=== PATIENT | male | born 1980 | race Caucasian/White ===

== ENCOUNTER 2019-08-13 18:01 | Emergency (ER) | payer OTHER, SELFPAY ==
[2019-08-13 18:02] VITALS: BP 149/93; PULSE 87; RESP 17; TEMP 36.3; O2SAT 95; BMI 31.8
--- NOTE | 2019-08-13 18:16 | ED.DCSUM_ITS ---
History of Present Illness Chief Complaint: Lower Extremity Injury Informant: Patient Narrative: Patient states that on Friday he developed pain in the medial aspect of his right calf. It hurts worse when he pulls his dorsiflexes. He denies any swelling to the leg or any known trauma. Denies any swelling behind the knee. No rashes or fevers. His father had blood clots. He personally has never had any. He tried drinking some extra water and a banana but that has not helped. He states it feels more like a charley horse. Past Medical History - Allergies and Home Meds Allergies/Adverse Reactions: Allergies Penicillins Allergy (Verified 08/13/19 18:02) Unknown Had it once when he was an infant and had a reaction at that time. Primary Care Physician: Russ Rai MD [Primary Care Provider] - Surgical History: - - 2 umbilical hernia surgeries vasectemy Smoking Status: Never smoker - Family History Paternal Family History: Reports: Hypertension Maternal Family History: Reports: Unknown Review of Systems General: Denies: Chills, Fever, Sweats Eyes: Denies: Visual changes - bilaterally, Diplopia ENT: Denies: Rhinorrhea, Sore throat Cardiovascular: Denies: Chest pain, Palpitations Respiratory: Denies: Dyspnea, Cough, Dyspnea on exertion Gastrointestinal: Denies: Abdominal pain, Nausea, Vomiting, Diarrhea, Melena, Hematochezia Genitourinary: Denies: Dysuria, Hematuria, Frequency Musculoskeletal: Reports: Extremity Pain. Denies: Back pain, Swelling Skin: Denies: Rash, Wounds Neurological: Denies: Headache, Weakness, Numbness Physical Exam Vital Signs/Narrative: Vital Signs Temp Pulse Resp BP Pulse Ox 08/13/19 18:02 97.4 F L 87 17 149/93 H 95 Inital Vital Signs reviewed: Yes General: Well nourished, Well developed, No Acute Distress Head: Normocephalic, Atraumatic Eyes: Perrl, EOMI ENT: Moist mucous membranes, No rhinorrhea Neck: Supple, Nontender Cardiovascular: Regular rate, Regular rhythm, No murmurs Respiratory: No distress, CTA bilaterally, Chest nontender Abdomen: Soft, Nontender, Nondistended, Normal bowel sounds Back: Nontender, Normal Inspection Extremities: No edema, - - There is some mild tenderness to palpation of the medial aspect of the right calf. There is no swelling of the leg no palpable c ords. No ecchymosis. No fullness in the popliteal space. No rashes. Pain with dorsiflexion negative Houston's. Skin: Normal color, No rash Neurological: Alert, Oriented x3, Cranial nerves II-XII grossly intact, Normal Strength, Normal Sensation Psychological: Normal affect, Normal Mood Diagnostic/Tx/Re-eval Clinical Impression(s) from Imaging Studies Venous Duplex 08/13/19 18:19 IMPRESSION: Normal venous Doppler ultrasound of the right lower extremity. Electronically Signed: Carlos Jason, at 19:46 EDT Tel , Service support , - Medical Decision Making Ultrasound was negative for DVT. I do not feel any firmness in the muscle belly to suggest spasm or mass. I do not appreciate a Garza's cyst. Patient will continue to rest the leg if is not improving he will follow-up with his doctor. ED Disposition - Plan for ED Patient: Disposition: Home or Assisted Living Diagnosis: Right calf pain Instructions: ED Strain Muscle Ext Referrals: Russ Rai MD [Primary Care Provider] - 1 Week if not improving
--- NOTE | 2019-08-13 18:19 | US_ITS ---
STUDY: VENOUS DOPPLER ULTRASOUND - RIGHT LOWER EXTREMITY REASON FOR EXAM: Male, 38 years old. RT CALF PAIN FOR 2 DAYS TECHNIQUE: Ultrasound evaluation of the deep vein system to include beaulieu-scale imaging and compression was performed. Beaulieu-scale imaging and Doppler sonographic evaluation, including duplex spectral analysis and qualitative color flow sonography, was performed. COMPARISON: None. FINDINGS: Common Femoral Vein: Normal compression, spontaneity and augmentation. Normal color Doppler. Common Femoral Vein/Greater Saphenous Junction: Normal compression, spontaneity and augmentation. Normal color Doppler. Femoral Proximal: Normal compression, spontaneity and augmentation. Normal color Doppler. Femoral Middle: Normal compression, spontaneity and augmentation. Normal color Doppler. Femoral Distal: Normal compression, spontaneity and augmentation. Normal color Doppler. Popliteal Vein: Normal compression, spontaneity and augmentation. Normal color Doppler. Posterior Tibial Vein: Normal compression, spontaneity and augmentation. Normal color Doppler. Peroneal Vein: Normal compression, spontaneity and augmentation. Normal color Doppler. US/Venous Duplex Imag/Limited/Uni IMPRESSION: Normal venous Doppler ultrasound of the right lower extremity. Electronically Signed: Carlos Gomez, at 19:46 EDT Tel , Service support ,
== END 2019-08-13 20:03 | disposition home or self-care (01) ==
PROVIDERS: Emergency Provider Emergency Medicine; PCP Family Medicine
DX: M79.661 Pain in right lower leg (principal); Z88.0 Allergy status to penicillin
CPT/HCPCS: 93971; 99282

== ENCOUNTER → 2020-02-02 | Outpatient (CLI) | payer OTHER, SELFPAY | END | disposition home or self-care (01) | LOC: LABSPEC 10:12 | PROVIDERS: PCP Family Medicine; Referring Provider Physician Assistant; Visit Provider Physician Assistant | DX: Z11.59 Encounter for screening for other viral diseases (principal) | CPT/HCPCS: 87635; C9803; U0003 ==

== ENCOUNTER 2020-05-17 07:30 | Outpatient (RCR) | payer OTHER, SELFPAY ==
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
--- NOTE | 2020-03-20 11:21 | HP.PTREVAL ---
Lexa Mirza PA-C, It has been my pleasure to treat RINKU BREEN over the last 9 visits for Subacromial decompression, Biceps Tenodesis, Clav Resection. Please see the progress note below for an update on the physical therapy plan of care! Subjective: Patient reports that he is almost 6 weeks out from surgery and is really ready to take the sling off. Plans to ask MD today if he can take if off. Go back to MD on the 29 of March. Sleep still bothersome when he rolls over on the right side. Does not sleep in the sling. Worst: 8-9 when he wakes up on it 4/10 when during the day. Agg: jerking like coughing and sneezing. Most of the day he is painfree. Does have mild N/T in the fingers if he is sitting for to long- when he moves the arm the N/T goes away. Goals: get back to playing golf. Objective/Function: Posture: FH, RS- does wear pillow sling on the right UE. Gait: no deviation noted in LE but no arm swing or trunk rotation due to sling. Observation: no s/s of infection- incisions healing well Palpation: tender along upper trap, distal clav., medial border of the scapula. ROM: Wrist/Hand: WNL AROM, PROM: Elbow: WNL AROM Shoulder: Flexion: 128 degrees, Abd: 95 degrees, IR: to belly, ER: 20 degrees. Strength: not tested due to restrictionsin shoulder/elbow. Plan Plan: Follow Biceps Tenodesis protocol- no elbow flexion/extn actively for 8 weeks. 03/20/2020: Progress shoulder ROM. Goals Goal 1:: Patient will be I with HEP and progression Goal Time Frame: 4-6 Weeks Goal Progress: Progressing Goal 2:: Patient will demo full AROM of the right shoulder Goal Time Frame: 4-6 Weeks Goal Progress: Progressing Goal 3:: Patient will maintain proper posture t/o tx session to demo increased scap s/s. Goal Time Frame: 4-6 Weeks Goal Progress: Progressing Anticipated Interventions Patient/Client Instruction: Educate patient on: Benefits of Fitness Program Therapeutic Exercise to Include: Strength training, Endurance training, Agility training, Body mechanics, Postural training, Flexibilty training, Neuromotor development, Passive ROM, Active ROM, Dynamic Lumbar Stabilization, Kristy Exercises For the Purpose of:: To improve muscle performance and motor function TENS: Yes Cryotherapy (ice pack, ice massage): Yes Thermo therapy (hot pack): Yes Ultrasound (thermal/non thermal): Yes Please do not hesitate to contact me at [phone] by phone or if you have questions or concerns regarding this new plan of care! Sincerely, SANGEETA PisanoT
--- NOTE | 2020-04-19 07:27 | HP.PTREVAL ---
Lexa Mirza PA-C, It has been my pleasure to treat RINKU BREEN over the last 17 visits for Subacromial decompression, Biceps Tenodesis, Clav Resection. Please see the progress note below for an update on the physical therapy plan of care! Subjective: He reports that he is better than he was before. He is able to use the shoulder but its not exactly like the other one. He is able to raise overhead and tie his own shoes. Has still struggles to tuck his shirt in or roll over on his right side. Worst: 4/10 Best: 0/10 most of the time. Patient feels that he is 60%- he wants to throw a baseball or swing a golf club. Goes back to see MD in the next two weeks. Objective/Function: Posture: FH, RS- can correct and maintain given VC's. Patient does not guard UE. Gait: good arm swing and trunk rotation. Palpation: tender in bicipital groove, upper trap and into the infraspinatus. Rom: Cervical: WNL. Shoulder: Flexion/Abduction: WFL but is slow and reports pain at end range. IR: to pocket with pain, ER: 50 degrees, Elbow/Wrist/Hand: WFL. Strength: Scap: fair, Shoulder: flexion/abd at 90 degrees arm extended: 4-/5, IR/ER at 90/90: 4+/5, Elbow: Flexion: 4+/5 Extn: 4+/5, Wrist: WNL Plan Plan: Follow Biceps Tenodesis protocol- no elbow flexion/extn actively for 8 weeks. 03/20/2020: Progress shoulder ROM. 04/19/2020: Strength/Stablization and good home exericise program. IE Given: IR sleeper Stretch and IR towel stretch Goals Goal 1:: Patient will be I with HEP and progression Goal Time Frame: 4-6 Weeks Goal Progress: Progressing Goal 2:: Patient will demo full AROM of the right shoulder Goal Time Frame: 4-6 Weeks Goal Progress: Progressing Goal 3:: Patient will maintain proper posture t/o tx session to demo increased scap s/s. Goal Time Frame: 4-6 Weeks Goal Progress: Progressing Anticipated Interventions Patient/Client Instruction: Educate patient on: Benefits of Fitness Program Therapeutic Exercise to Include: Strength training, Endurance training, Agility training, Body mechanics, Postural training, Flexibilty training, Neuromotor development, Passive ROM, Active ROM, Dynamic Lumbar Stabilization, Kristy Exercises For the Purpose of:: To improve muscle performance and motor function TENS: Yes Cryotherapy (ice pack, ice massage): Yes Thermo therapy (hot pack): Yes Ultrasound (thermal/non thermal): Yes Please do not hesitate to contact me at [phone] by phone or if you have questions or concerns regarding this new plan of care! Sincerely, SANGEETA PisanoT
--- NOTE | 2020-05-17 09:05 | HP.PTDCSUM ---
It has been my pleasure to treat RINKU BREEN referred by Lexa Mirza PA-C, with the diagnosis of Subacromial decompression, Biceps Tenodesis, Clav Resection for a total of 25 visit(s). Discharge Date: Please see the following information for a summary of their discharge status. Subjective: Pt reports only certain movements it hurts more such as scapation feels it on biceps insertion. Pt reports that he feels it more bad weather. Pt reports that he is lacking strength for lifting, cannot throw ball. Pt reports some discomfort remaintain in biceps insertion. R SH Pain Intensity (Out of 10): 0 % Improvement: 90 Objective/Function: Posture: FH, RS- can correct and maintain given VC's. Patient does not guard UE. Gait: good arm swing and trunk rotation. Palpation: tender in bicipital groove. ROM: Shoulder: Flexion/Abduction: WFL but is slow and reports pain at end range. IR: to belt line without pain, ER: 50 degrees, Elbow/Wrist/Hand: WFL. Strength: Scap: fair, Shoulder: flexion/abd at 90 degrees arm extended: 4/5, IR/ER at 90/90: 4+/5 pain with IR , Elbow: Flexion: 5/5 Extn: 4+/5, Wrist: WNL. throw tennis ball: short distance (10ft) with tennis ball, to increase ROM and improve confidence. Goal 1:: Patient will be I with HEP and progression Goal Progress: Progressing Goal 2:: Patient will demo full AROM of the right shoulder Goal Progress: Progressing Goal 3:: Patient will maintain proper posture t/o tx session to demo increased scap s/s. Goal Progress: Progressing Plan: Pt to be d/c with I HEP, encouraged to contact with questions and concerns. Pt given paperwork to join health and wellness program. If there are questions or concerns regarding this patient's physical therapy, please feel free to call me at [phone]. Thank you for the referral of this patient. Sincerely, Edith Grier DPT
== END 2020-05-17 13:56 | disposition home or self-care (01) ==
LOC: PT 07:30
PROVIDERS: PCP Family Medicine; Referring Provider Physician Assistant; Visit Provider Physician Assistant
DX: S46.011D Strain of muscle(s) and tendon(s) of the rotator cuff of right shoulder, subsequent encounter (principal); M75.51 Bursitis of right shoulder
CPT/HCPCS: 97110; 97140; 97162; 97164

== ENCOUNTER 2020-10-21 20:56 | Emergency (ER) | payer OTHER, SELFPAY ==
[2020-10-21 20:57] VITALS: BP 127/78; PULSE 114; RESP 16; TEMP 36.8; O2SAT 97; BMI 30.9
--- NOTE | 2020-10-21 21:54 | CT_ITS ---
STUDY: CT ABDOMEN AND PELVIS WITHOUT CONTRAST REASON FOR EXAM: Male, 40 years old. Kidney Stone RADIATION DOSAGE (If Supplied By Facility): CTDIvol = ( 11.92 ) mGy, DLP = ( 690.94 ) mGycm TECHNIQUE: Transaxial images were obtained from the dome of the diaphragm to the symphysis pubis without oral contrast, and without intravenous contrast. Sagittal and coronal images were reconstructed. Individualized dose optimization techniques were used for this CT. COMPARISON: None. FINDINGS: The visualized lung bases are unremarkable. The visualized portions of the heart are within normal limits. Normal liver. Normal gallbladder and extrahepatic biliary system. Normal spleen. Normal pancreas. Normal bilateral adrenal glands. Normal right kidney. Normal left kidney. Normal visualized stomach. Normal small intestine. There is sigmoid diverticulosis, with thickening of the colon wall, and pericolonic inflammation changes consistent with acute diverticulitis. No drainable fluid collection or associated intraperitoneal free gas. The appendix is visualized and appears normal. Normal abdominal aorta. Normal inferior vena cava. Normal retroperitoneum. Normal urinary bladder. Normal visualized prostate gland. Normal abdominal wall. There are diffuse degenerative changes of the visualized lumbar spine. CT/Abdomen/Pelvis without Cont IMPRESSION: Acute uncomplicated sigmoid diverticulitis. Electronically Signed: Ruel Penaloza MD at 22:39 EDT Tel , Service support ,
[2020-10-21 21:59] LABS: Absolute Lymphocyte Count 1.84 X10^3/uL (0.83-4.51); Basophil# 0.02 X10^3/uL; Basophil% 0.2 % (0-1); Eosinophil# 0.01 X10^3/uL; Eosinophils% 0.1 % (0-5); Hematocrit 43.5 % (40-54); Hemoglobin 14.2 g/dL (13.0-16.5); Lymphocyte # 1.84 X10^3/ul (0.83-4.51); Lymphocyte % 14.2 % (19-41); Mean Corp Hgb Conc 32.6 g/dL (32-36); Mean Corpuscular Hgb 28.9 pg (27.0-32.0); Mean Corpuscular Volume 88.4 fL (80-94); Mean Platelet Vol. 9.4 fl (6.2-12.0); Monocyte% 8.5 % (0-10); NRBC Flagged by Analyzer 0 % (0-5); Neutrophil # 9.96 X10^3/uL (2.7-7.7); Neutrophil % 76.5 % (47-70); Platelet Count 219 K/mm3 (150-450); RBC Distribution Width CV 12.3 % (11.6-14.6); RBC Distribution Width SD 40.1 fl (35.1-43.9); Red Blood Count 4.92 M/mm3 (4.6-6.2)
[2020-10-21] MEDS: Ondansetron 4 MG/2 ML Vial IV (22:00)
[2020-10-21] MEDS: Ketorolac 30 MG/ML Syringe IV (22:01)
[2020-10-21] MEDS: 0.9% Normal Saline 1,000 ML 250 ML IV (22:03)
[2020-10-21 22:23] LABS: Anion Gap 6 (5-15); BUN 15 mg/dL (7-18); BUN/Creat Ratio 12.6 RATIO (10-20); Calcium,Total 8.5 mg/dL (8.5-10.1); Chloride 104 mmol/L (98-107); Creatinine, Serum 1.19 mg/dL (0.70-1.30); EST Glomerular Filtration Rate 71 mL/min (>60); Est Glom Filt Rate - Afr Amer 86 mL/min (>60); Estimated Creatinine Clearance 86.13 ml/min; Glucose 106 mg/dL (74-106); Sodium Level 139 mmol/L (136-145)
[2020-10-21 22:47] LABS: Bacteria 0 SEEN /hpf (None Seen); Color, Urine Yellow (Yellow); Glucose, Dipstick Normal (Normal); Ketone-Dipstick Negative (Negative); Leukocyte Esterase-Dipstick Negative /ul (Negative); Mucous, Urine 0 SEEN /hpf (<or=2+); Nitrite-Dipstick Negative (Negative); Occult Blood-Urine 25 /ul (Negative); Protein-Dipstick 15 mg/dl (Negative); Red Blood Cells-Urine 0 SEEN /hpf (0-5); Specific Gravity, Urine 1.015 (1.002-1.030); Squamous Epithelial Cells - UA 0 SEEN /hpf (0-5); Urine Bilirubin Dipstick Negative (Negative); Urine Clarity Clear (Clear); Urine Urobilinogen Normal (Normal); White Blood Cells 0 SEEN /hpf (0-5)
[2020-10-21 23:04] VITALS: BP 130/75; RESP 15; O2SAT 95
--- NOTE | 2020-10-21 23:14 | EDS_ITS ---
HPI History of Present Illness Chief Complaint: Flank Pain Informant: patient Onset/Context/Timing Onset: Yesterday Context: Gradual Onset Timing: Continuous Quality: Cramping, stabbing Location: Low back and lower abdomen Worsened by: Standing, walking Relieved by: Nothing Narrative Narrative: Patient presents with right flank and back pain that began yesterday. Patient states the pain is gradually getting worse. Patient states the pain is radiating into his lower abdomen and right inguinal area. Patient states the pain is worse with standing and walking. Patient describes his pain is cramping and stabbing. Patient states the pain is been constant since yesterday. Patient states his urine has been darker than usual but denies any kwan hematuria. Patient does admit to a mild headache. Patient denies any nausea or vomiting. Patient denies any fevers or chills. PFSH PFS Medical History Alcohol abuse Fatty liver Home Medications multivitamin with minerals 1 ea PO DAILY 08/13/19 [History Last Taken Unknown] ciprofloxacin HCl 500 mg PO BID #20 tablet 10/21/20 [Rx Last Taken Unknown] metronidazole 500 mg PO Q6H #40 tab 10/21/20 [Rx Last Taken Unknown] Allergy/AdvReac Type Severity Reaction Status Date / Time Penicillins Allergy Unknown Verified 10/21/20 20:57 Surgical History Hx of shoulder surgery Social History Smoking Status: Current every day smoker tobacco type: smokeless tobacco ROS ROS ED Constitutional Constitutional ED: Denies chills or fever(s) Eyes Eyes: Denies blurry vision or change in vision ENT ENT ED: Denies rhinorrhea or sore throat Cardiovascular Cardiovascular: Denies chest pain or palpitations Respiratory/Chest Respiratory/Chest: Denies cough or dyspnea Gastrointestinal Gastrointestinal: Denies nausea or vomiting Genitourinary Genitourinary ED: Reports hematuria; Denies dysuria Musculoskeletal Musculoskeletal: Reports back pain; Denies neck pain Integumentary Denies abscess or rash Neurologic Neurologic: Reports headache(s); Denies weakness Allergic/Immunologic Allergic/Immunologic ED: Denies mouth swelling or urticaria EXAM Physical Exam Const Vital Signs: 10/21/20 20:57 10/21/20 21:51 10/21/20 23:04 Temperature 98.2 F Temperature Source Temporal Pulse Rate 114 H Respiratory Rate 16 15 Respiratory Effort Normal Non-Labored Respiratory Pattern Normal Blood Pressure 127/78 H 130/75 H Blood Pressure Mean 94 93 Pulse Ox 97 95 Oxygen Delivery Method Room Air Room Air Positive well nourished and well developed General Appearance ED: well developed HEENT Reports moist mucous membranes Neck supple and no JVD Resp normal respiratory effort and clear to auscultation bilaterally Cardio regular rate, regular rhythm and no murmurs GI normal to inspection, nondistended, normoactive bowel sounds Palpation: soft and tender LLQ, RLQ and suprapubic; Negative for guarding or rebound tenderness present Extremity normal to inspection General Extremety ED: Negative for edema or tenderness General Extremity: Negative for edema Neuro oriented x3, CN's II-XII intact bilaterally and no sensory deficits noted Sensorium / Orientation: alert Motor Exam: strength 5/5 throughout Psych mental status grossly normal Skin no rashes or lesions noted MDM MDM MDM Narrative Medical decision making narrative: Patient was given IV fluids, Toradol, and Zofran. CBC shows a mild leukocytosis of 13.0. Basic metabolic profile was within normal limits. Urinalysis does not show any evidence of urinary tract infection or hematuria. CT scan of the abdomen pelvis was obtained. There is uncomplicated sigmoid diverticulitis. This was interpreted by the radiologist and reviewed by myself. Patient was given a dose of Cipro and Flagyl here. Patient was given prescriptions for Cipro and Flagyl. Patient was instructed to follow-up with his primary care physician in 5 to 7 days. Patient was instructed return if worse in any way. Patient understood and was agreeable with the plan. All questions were answered. Lab Data Attestation: I reviewed the patient's lab results. Labs: Laboratory Results - last 24 hr 10/21/20 10/21/20 10/21/20 21:45 21:45 22:36 WBC 13.0 H RBC 4.92 Hgb 14.2 Hct 43.5 MCV 88.4 MCH 28.9 MCHC 32.6 RDW Std Deviation 40.1 RDW Coeff of Omar 12.3 Plt Count 219 MPV 9.4 Immature Gran % (Auto) 0.500 Neut % (Auto) 76.5 H Lymph % (Auto) 14.2 L Mathews % (Auto) 8.5 Eos % (Auto) 0.1 Baso % (Auto) 0.2 Absolute Neuts (auto) 10.0 H Absolute Lymphs (auto) 1.84 Nucleated RBC % 0 Sodium 139 Potassium 4.0 Chloride 104 Carbon Dioxide 29.0 Anion Gap 6 BUN 15 Creatinine 1.19 Estim Creat Clear Calc 86.13 Est GFR (MDRD) Af Amer 86 Est GFR (MDRD) Non-Af 71 BUN/Creatinine Ratio 12.6 Glucose 106 Calcium 8.5 Urine Color Yellow Urine Clarity Clear Urine pH 6.0 Ur Specific [place] 1.015 Urine Protein 15 H Urine Glucose (UA) Normal Urine Ketones Negative Urine Occult Blood 25 H Urine Nitrite Negative Urine Bilirubin Negative Urine Urobilinogen Normal Ur Leukocyte Esterase Negative Urine RBC 0 SEEN Urine WBC 0 SEEN Ur Squamous Epith Cells 0 SEEN Urine Bacteria 0 SEEN Urine Mucus 0 SEEN Radiography Diagnostic Testing: Radiology Impression Abdomen/Pelvis CT 10/21/20 21:54 IMPRESSION: Acute uncomplicated sigmoid diverticulitis. Electronically Signed: Ruel Penaloza MD at 22:39 EDT Tel , Service support , Discharge Plan Triage Chief Complaint: Flank Pain ED Provider: Francesco Ellison Dx/Rx/DC Orders Clinical Impression: Diverticulitis Instructions: ED Diverticulitis Prescriptions: New ciprofloxacin HCl [ciprofloxacin HCl] 500 MG tablet 500 mg PO BID Qty: 20 RF: 0 metronidazole [metronidazole] 500 MG tablet 500 mg PO Q6H Qty: 40 RF: 0 No Action multivitamin with minerals 1 EACH tablet 1 ea PO DAILY RF: 0 Primary Care Provider: Russ Rai Referrals: Russ Rai MD [Primary Care Provider] - 3-5 Days Disposition Disposition: Home, Self Care
[2020-10-21] MEDS: metroNIDAZOLE 500 MG Tablet PO (23:40)
[2020-10-21] MEDS: Ciprofloxacin 500 MG Tablet PO (23:40)
[2020-10-21 23:41] VITALS: BP 120/79; PULSE 80; RESP 15; O2SAT 93
== END 2020-10-21 23:46 | disposition home or self-care (01) ==
PROVIDERS: Emergency Provider Emergency Medicine; PCP Family Medicine
DX: K57.32 Diverticulitis of large intestine without perforation or abscess without bleeding (principal); R51.9 Headache, unspecified; F17.200 Nicotine dependence, unspecified, uncomplicated
CPT/HCPCS: 74176; 80048; 81001; 85025; 96361; 96374; 96375; 99285; J7030; A4216; J2405

== ENCOUNTER 2020-11-20 18:46 | Emergency (ER) | payer OTHER, SELFPAY ==
[2020-11-20 18:47] VITALS: BP 126/75; PULSE 95; RESP 18; TEMP 37.1; O2SAT 96; BMI 29.3
[2020-11-20 20:21] LABS: Absolute Lymphocyte Count 1.89 X10^3/uL (0.83-4.51); Absolute Neutrophil Count 10.7 X10^3/uL (2.0-7.7); Basophil# 0.02 X10^3/uL; Basophil% 0.1 % (0-1); Eosinophil# 0.04 X10^3/uL; Eosinophils% 0.3 % (0-5); Hematocrit 46.3 % (40-54); Hemoglobin 15.1 g/dL (13.0-16.5); Lymphocyte # 1.89 X10^3/ul (0.83-4.51); Lymphocyte % 13.6 % (19-41); Mean Corp Hgb Conc 32.6 g/dL (32-36); Mean Corpuscular Hgb 28.8 pg (27.0-32.0); Mean Corpuscular Volume 88.2 fL (80-94); Mean Platelet Vol. 9.5 fl (6.2-12.0); Monocyte# 1.22 X10^3/uL; Monocyte% 8.8 % (0-10); NRBC Flagged by Analyzer 0 % (0-5); Neutrophil # 10.69 X10^3/uL (2.7-7.7); Neutrophil % 76.8 % (47-70); Platelet Count 233 K/mm3 (150-450); RBC Distribution Width CV 12.5 % (11.6-14.6); RBC Distribution Width SD 40.8 fl (35.1-43.9); Red Blood Count 5.25 M/mm3 (4.6-6.2); White Blood Count 13.9 K/mm3 (4.4-11.0)
--- NOTE | 2020-11-20 20:22 | ED.VIS.GI ---
HPI HPI - GI History of Present Illness Chief Complaint: Abd Pain Abdominal Pain/Flank Pain Onset: Yesterday Context: Gradual Onset Timing: Continuous Location: LLQ Current Severity: Mild Maximum Severity: Mild Worsened by: Nothing Relieved by: Nothing Nausea/Vomiting/Emesis GI Symptom: Negative for Nausea and Vomiting Diarrhea/Melena/Hematochezia GI Symptom: Negative for Diarrhea, Melena and Hematochezia Associated Symptoms Associated Symptoms: Negative for Dysuria, Frequency, Hematuria and Urgency Narrative Narrative: 40-year-old male diagnosed with diverticulitis October 21. Did a 10-day course of Cipro and Flagyl was doing well. Yesterday started having similar left lower quadrant abdominal pain.Denies dysuria. Denies melena. He has had 2 prior hernia repair surgeries. Prior similar symptoms: Yes Recent Illness/Hospitalization: No PFSH PFSH Medical History Acute diverticulitis Alcohol abuse Fatty liver no medical history Home Medications multivitamin with minerals 1 ea PO DAILY 08/13/19 [History Last Taken Unknown] ciprofloxacin HCl [Cipro] 500 mg PO BID 14 Days #28 tab 11/20/20 [Rx Last Taken Unknown] hydrocodone-acetaminophen 1 tab PO Q4H 5 Days #14 tab 11/20/20 [Rx Last Taken Unknown] metronidazole 500 mg PO Q6H 14 Days #56 tab 11/20/20 [Rx Last Taken Unknown] Allergy/AdvReac Type Severity Reaction Status Date / Time Penicillins Allergy Unknown Verified 11/20/20 20:21 Surgical History Hx of shoulder surgery Social History Smoking Status: Current every day smoker tobacco type: smokeless tobacco ROS ROS ED ROS Narrative Left lower quadrant abdominal pain. Review of Systems ROS Unobtainable: Denies due to encephalopathy Constitutional Constitutional ED: Denies chills or fever(s) ENT ENT ED: Denies ear pain or sore throat Cardiovascular Cardiovascular: Denies chest pain Respiratory/Chest Respiratory/Chest: Denies dyspnea Gastrointestinal Gastrointestinal: Reports abdominal pain; Denies constipation, diarrhea, melena, nausea or vomiting Genitourinary Genitourinary ED: Denies dysuria Musculoskeletal Musculoskeletal: Denies myalgias Integumentary Denies rash Neurologic Neurologic: Denies headache(s) Psychiatric Psychiatric: Denies depression Endocrine Endocrinology: Denies polyuria Hematologic/Lymphatic Hematologic/Lymphatic: Denies easy bruising Allergic/Immunologic Allergic/Immunologic ED: Denies urticaria EXAM Physical Exam Narrative Exam Narrative: 40-year-old male no acute distress. Vital signs stable afebrile. Lungs are clear. Heart regular rate and rhythm. Abdomen soft nondistended normal bowel sounds no peritoneal signs. Tenderness left lower quadrant only. Moving all 4 extremities no edema. Otherwise exam normal. Const Vital Signs: 11/20/20 18:47 11/20/20 20:23 Temperature 98.8 F Temperature Source Temporal Pulse Rate 95 86 Respiratory Rate 18 16 Blood Pressure 126/75 H 133/86 H Blood Pressure Mean 92 101 Pulse Ox 96 98 Oxygen Delivery Method Room Air Room Air Positive well nourished and well developed; Negative for obese, cachectic, contractures or unkempt General Appearance ED: well developed and NAD; Negative for unkempt, cachectic or contractures Nutritional Appearance: Negative for cachectic or obese HEENT Reports moist mucous membranes normocephalic and atraumatic; Negative for trauma or tenderness Eyes PERRL and EOMs intact bilaterally Neck no lymphadenopathy, supple and no JVD General: Negative for tenderness Resp normal respiratory effort and clear to auscultation bilaterally Auscultation: Negative for rales, rhonchi or wheezes Cardio regular rate, regular rhythm, S1 normal heart sound, S2 normal heart sound and no murmurs GI non-distended and no masses; Negative for non-tender Inspection: Negative for abdominal distention Auscultation: normoactive bowel sounds; Negative for hypoactive bowel sounds Palpation: soft and tender; Negative for guarding, rigid or rebound tenderness present Back/Spine no CVA tenderness Extremity full ROM General Extremety ED: Negative for edema or tenderness General Extremity: Negative for edema Neuro moves all extremities Sensorium / Orientation: alert, oriented to person, oriented to place and oriented to time; Negative for orientation impaired Psych mental status grossly normal Appearance: Negative for unkempt Skin Lesions: no lesions Rashes: no rashes MDM MDM MDM Narrative Medical decision making narrative: Middle-age male left lower quadrant abdominal pain recent history of diverticulitis. CAT scan labs pending. Morphine and Zofran for pain. Repeat exam patient is doing well at 10:32 PM. He and I went over all his test results. He will be discharged back to home on Cipro and Flagyl for 2 weeks. Outpatient follow-up with his primary care physician. He knows return if worse. Lab Data Attestation: I reviewed the patient's lab results. Lab results narrative: CBC shows elevated white count 13.9. Hemoglobin 15. Electrolytes unremarkable gap of 8 creatinine of 1. Glucose 122. UA negative. No signs of infection. Labs: Laboratory Results - last 24 hr 11/20/20 11/20/20 11/20/20 20:04 20:04 20:40 WBC 13.9 H RBC 5.25 Hgb 15.1 Hct 46.3 MCV 88.2 MCH 28.8 MCHC 32.6 RDW Std Deviation 40.8 RDW Coeff of Omar 12.5 Plt Count 233 MPV 9.5 Immature Gran % (Auto) 0.400 Neut % (Auto) 76.8 H Lymph % (Auto) 13.6 L [place] % (Auto) 8.8 Eos % (Auto) 0.3 Baso % (Auto) 0.1 Absolute Neuts (auto) 10.7 H Absolute Lymphs (auto) 1.89 Nucleated RBC % 0 Sodium 137 Potassium 3.8 Chloride 101 Carbon Dioxide 28.0 Anion Gap 8 BUN 8 Creatinine 1.02 Estim Creat Clear Calc 103.55 Est GFR (MDRD) Af Amer 103 Est GFR (MDRD) Non-Af 85 BUN/Creatinine Ratio 7.8 L Glucose 122 H Calcium 8.9 Urine Color Straw Urine Clarity Clear Urine pH 6.0 Ur Specific [place] 1.010 Urine Protein Negative Urine Glucose (UA) Normal Urine Ketones Negative Urine Occult Blood 10 H Urine Nitrite Negative Urine Bilirubin Negative Urine Urobilinogen Normal Ur Leukocyte Esterase Negative Urine RBC 0-5 SEEN Urine WBC 0 SEEN Ur Squamous Epith Cells 0-5 SEEN Amorphous Sediment 1+ URATE Urine Bacteria 0 SEEN Urine Mucus 0 SEEN Radiography Diagnostic Testing: Radiology Impression Abdomen/Pelvis CT 11/20/20 20:42 IMPRESSION: Sigmoid diverticulitis with microperforation. No obstruction or abscess. Electronically Signed: Roque Morales MD at 21:58 EDT , Service support , ADDENDUM: 11/20/20 2218 IMPRESSION: Sigmoid diverticulitis with microperforation. No obstruction or abscess. N.B. : [employer]Dbbie equal opportunity specialist, KAROL, confirmed on 11/20/2020 22:11:35 (ET) that the healthcare facility has received the radiology report. Electronically Signed: Roque Morales MD at 21:58 EDT , Service support , CAT scan read by the radiologist and reviewed by me shows sigmoid diverticulitis with microperforation.No abscess no obstruction. Discharge Plan Triage Chief Complaint: Abd Pain ED Provider: Magdi Ware Dx/Rx/DC Orders Clinical Impression: Diverticulitis Instructions: ED Diverticulitis Prescriptions: New ciprofloxacin HCl [Cipro] 500 mg tablet 500 mg PO BID 14 Days Qty: 28 RF: 0 metronidazole 500 mg tablet 500 mg PO Q6H 14 Days Qty: 56 RF: 0 hydrocodone-acetaminophen 5-325 mg tablet 1 tab PO Q4H 5 Days Qty: 14 RF: 0 No Action multivitamin with minerals 1 EACH tablet 1 ea PO DAILY RF: 0 Primary Care Provider: Russ Rai Referrals: Russ Rai MD [Primary Care Provider] - 1 Week Activity Restrictions/Additional Instructions: Call follow-up with your doctor. [place] for pain as needed or Motrin. Cipro 1 pill twice a day for the next 2 weeks. Flagyl 1 pill 4 times a day for the next 2 weeks. Follow-up with your doctor to see if they can stop the antibiotics after you are finished with and to continue it for even longer. Return if increasing pain, fever or feeling a lot worse. Disposition Disposition: Home, Self Care
[2020-11-20 20:23] VITALS: BP 133/86; PULSE 86; RESP 16; O2SAT 98
[2020-11-20] MEDS: Ondansetron 4 MG/2 ML Vial IV (20:31)
[2020-11-20] MEDS: morphine 8 MG/ML Syringe IV (20:33)
[2020-11-20 20:35] LABS: Anion Gap 8 (5-15); BUN 8 mg/dL (7-18); BUN/Creat Ratio 7.8 RATIO (10-20); Calcium,Total 8.9 mg/dL (8.5-10.1); Chloride 101 mmol/L (98-107); Creatinine, Serum 1.02 mg/dL (0.70-1.30); EST Glomerular Filtration Rate 85 mL/min (>60); Est Glom Filt Rate - Afr Amer 103 mL/min (>60); Estimated Creatinine Clearance 103.55 ml/min; Glucose 122 mg/dL (74-106); Potassium 3.8 mmol/L (3.5-5.1); Sodium Level 137 mmol/L (136-145)
--- NOTE | 2020-11-20 20:42 | CT_ITS ---
ACR Level 3 findings have been noted. An addendum which confirms receipt of the report will follow. STUDY: CT ABDOMEN AND PELVIS WITH CONTRAST REASON FOR EXAM: Male, 40 years old. LLQ abd pain RADIATION DOSAGE (If Supplied By Facility): CTDIvol = ( 18.99 ) mGy, DLP = ( 1295.08 ) mGycm TECHNIQUE: Transaxial images were obtained from the dome of the diaphragm to the symphysis pubis without oral contrast. IV 100mL Isovue-370 was administered. Sagittal and coronal images were reconstructed. Individualized dose optimization techniques were used for this CT. COMPARISON: October 21, 2020 FINDINGS: The visualized lung bases are unremarkable. The visualized portions of the heart are within normal limits. There is hepatomegaly with diffuse hepatic enlargement. Normal gallbladder and extrahepatic biliary system. Normal spleen. Normal pancreas. Normal bilateral adrenal glands. Normal right kidney. Normal left kidney. Normal visualized stomach. Normal small intestine. There is diverticulosis, with thickening of the sigmoid colon wall, and pericolonic inflammation changes consistent with acute diverticulitis. There is a focus of extraluminal air consistent with microperforation The appendix is visualized and appears normal. Normal abdominal aorta. Normal inferior vena cava. Normal retroperitoneum. Normal urinary bladder. There is mild free fluid in the pelvis. There is postoperative change of the abdominal wall. There is degenerative change of the spine. CT/Abdomen/Pelvis W IV Cont ONLY IMPRESSION: Sigmoid diverticulitis with microperforation. No obstruction or abscess. Electronically Signed: Roque Morales MD at 21:58 EDT , Service support ,
[2020-11-20 20:43] LABS: Bacteria 0 SEEN /hpf (None Seen); Mucous, Urine 0 SEEN /hpf (<or=2+); White Blood Cells 0 SEEN /hpf (0-5)
[2020-11-20 20:45] LABS: Color, Urine Straw (Yellow); Glucose, Dipstick Normal (Normal); Ketone-Dipstick Negative (Negative); Leukocyte Esterase-Dipstick Negative /ul (Negative); Nitrite-Dipstick Negative (Negative); Occult Blood-Urine 10 /ul (Negative); Protein-Dipstick Negative (Negative); Urine Bilirubin Dipstick Negative (Negative); Urine Clarity Clear (Clear); Urine Urobilinogen Normal (Normal)
[2020-11-20 20:56] LABS: Red Blood Cells-Urine 0-5 SEEN /hpf (0-5); Squamous Epithelial Cells - UA 0-5 SEEN /hpf (0-5)
[2020-11-20 20:57] LABS: Amorphous Sediment 1+ URATE
[2020-11-20] MEDS: Ciprofloxacin 500 MG Tablet PO (22:55)
[2020-11-20] MEDS: metroNIDAZOLE 500 MG Tablet PO (22:55)
[2020-11-20 23:00] VITALS: BP 139/90; PULSE 78; RESP 16; O2SAT 98
== END 2020-11-20 23:01 | disposition home or self-care (01) ==
PROVIDERS: Emergency Provider Emergency Medicine; PCP Family Medicine
DX: K57.32 Diverticulitis of large intestine without perforation or abscess without bleeding (principal); F17.200 Nicotine dependence, unspecified, uncomplicated; Z79.899 Other long term (current) drug therapy
CPT/HCPCS: 74177; 80048; 81001; 85025; 96374; 96375; 99284; Q9967; A4216; J2405

== ENCOUNTER 2020-11-24 14:47 | Inpatient (IN) | payer OTHER, SELFPAY ==
[2020-11-24 14:50] VITALS: BP 123/71; PULSE 71; RESP 18; TEMP 36.3; O2SAT 99; BMI 28.7
[2020-11-24 15:29] LABS: Absolute Lymphocyte Count 1.05 X10^3/uL (0.83-4.51); Absolute Neutrophil Count 9.9 X10^3/uL (2.0-7.7); Basophil# 0.02 X10^3/uL; Basophil% 0.2 % (0-1); Eosinophil# 0.01 X10^3/uL; Eosinophils% 0.1 % (0-5); Hematocrit 47.3 % (40-54); Hemoglobin 15.3 g/dL (13.0-16.5); Lymphocyte # 1.05 X10^3/ul (0.83-4.51); Lymphocyte % 8.8 % (19-41); Mean Corp Hgb Conc 32.3 g/dL (32-36); Mean Corpuscular Hgb 28.7 pg (27.0-32.0); Mean Corpuscular Volume 88.7 fL (80-94); Monocyte# 0.84 X10^3/uL; Monocyte% 7.1 % (0-10); NRBC Flagged by Analyzer 0 % (0-5); Neutrophil # 9.93 X10^3/uL (2.7-7.7); Neutrophil % 83.3 % (47-70); Platelet Count 272 K/mm3 (150-450); RBC Distribution Width CV 12.2 % (11.6-14.6); RBC Distribution Width SD 39.9 fl (35.1-43.9); Red Blood Count 5.33 M/mm3 (4.6-6.2); White Blood Count 11.9 K/mm3 (4.4-11.0)
[2020-11-24 15:40] LABS: Anion Gap 0 (5-15); BUN 8 mg/dL (7-18); Chloride 104 mmol/L (98-107); EST Glomerular Filtration Rate 87 mL/min (>60); Est Glom Filt Rate - Afr Amer 106 mL/min (>60); Estimated Creatinine Clearance 105.62 ml/min; Glucose 165 mg/dL (74-106); Sodium Level 134 mmol/L (136-145)
[2020-11-24 16:25] LABS: Bacteria 0 SEEN /hpf (None Seen); Mucous, Urine 0 SEEN /hpf (<or=2+)
[2020-11-24 16:29] LABS: Color, Urine Yellow (Yellow); Glucose, Dipstick Normal (Normal); Ketone-Dipstick Negative (Negative); Leukocyte Esterase-Dipstick 25 /ul (Negative); Nitrite-Dipstick Negative (Negative); Occult Blood-Urine 10 /ul (Negative); Protein-Dipstick Negative (Negative); Urine Bilirubin Dipstick Negative (Negative); Urine Clarity Sl. Cloudy (Clear); Urine Urobilinogen Normal (Normal); Urine pH 6.5 (5.0 - 8.0)
[2020-11-24 16:35] LABS: Red Blood Cells-Urine 0-5 SEEN /hpf (0-5); White Blood Cells 0-5 SEEN /hpf (0-5)
[2020-11-24 16:36] LABS: Squamous Epithelial Cells - UA 0-5 SEEN /hpf (0-5)
--- NOTE | 2020-11-24 16:38 | CT_ITS ---
INDICATION: abdominal pain -- IV PO Contrast EXAMINATION: CT Abdomen And Pelvis W/ Contrast Injection TECHNIQUE: Helically acquired images were obtained of the abdomen and pelvis after IV contrast. A radiation dose optimization technique was used for this scan. IV Contrast dosage and agent: Oral and amp; IV Gastrografin and amp; 100mL Isovue-370 Oral contrast: Yes. COMPARISON: None. FINDINGS: Visualized lung bases: Unremarkable Liver: Unremarkable Gallbladder: Unremarkable Spleen: Unremarkable Pancreas: Unremarkable Adrenal Glands: Unremarkable Kidneys: Unremarkable Vasculature: Unremarkable GI Tract: Scattered colonic diverticula. There is short segment wall thickening of the sigmoid colon with surrounding mesenteric fat stranding. There is a single large inflamed diverticula filled with air in this area which could also represent a contained perforation. No focal fluid collection. Lymphadenopathy: None Peritoneum: No ascites. Bladder: Unremarkable Reproductive organs: Unremarkable Bones/Soft tissues: No suspicious osseous or soft tissue lesions CT/Abdomen/Pelvis WITH Contrast IMPRESSION: Acute sigmoid diverticulosis. There is a single large inflamed diverticula filled with air in this area which could also represent a contained perforation. No focal fluid collection. Electronically Signed: Sonny Aguayo MD at 18:30 EDT Tel , Service support ,
--- NOTE | 2020-11-24 16:39 | EX.ED.DYSGE1 ---
HPI History of Present Illness Chief Complaint: Nausea/Vomiting Detail of Chief Complaint: Abdominal pain Informant: patient Narrative Narrative: Patient presents to the emergency department complaint of abdominal pain to the left lower quadrant. Patient states that he was diagnosed with diverticulitis in October and had antibiotics and felt okay for about 2 weeks but then started having more pain. Patient was seen in the emergency department 4 days ago and diagnosed with diverticulitis with microperforation started on Cipro and Flagyl. Patient started feeling a little bit better but today had bowel movements that were watery and started having severe pain to left lower quadrant. Patient had dry heaves. While he was having the diarrhea patient states that he became very diaphoretic this morning and was pouring sweat and nauseated. Currently rates his pain 5 out of 10. Prior similar symptoms: No PFSH PFSH Medical History Acute diverticulitis Alcohol abuse Fatty liver Home Medications multivitamin with minerals 1 ea PO DAILY 08/13/19 [History Last Taken Unknown] ciprofloxacin HCl [Cipro] 500 mg PO BID 14 Days #28 tab 11/20/20 [Rx Last Taken Unknown] hydrocodone-acetaminophen 1 tab PO Q4H 5 Days #14 tab 11/20/20 [Rx Last Taken Unknown] metronidazole 500 mg PO Q6H 14 Days #56 tab 11/20/20 [Rx Last Taken Unknown] Allergy/AdvReac Type Severity Reaction Status Date / Time Penicillins Allergy Unknown Verified 11/24/20 14:55 Surgical History Hx of shoulder surgery Social History Smoking Status: Former smoker ROS ROS ED Constitutional Constitutional ED: Reports systems reviewed and no addt'l complaints, except as documented; Denies body ache(s), change in weight or chills Eyes Eyes: Denies acute decrease in peripheral vision, change in vision, double vision or loss of vision ENT ENT ED: Reports none; Denies ear pain, lip swelling, loss taste/smell, neck pain, otalgia or sore throat Cardiovascular Cardiovascular: Reports none; Denies abdominal pain, chest pain with activity, leg edema, lightheadedness, palpitations, rapid heart rate or syncope Respiratory/Chest Respiratory/Chest: Reports none; Denies change in mental status, dry cough, dyspnea, hemoptysis, shortness of breath at rest or shortness of breath with exertion Gastrointestinal Gastrointestinal: Reports none, abdominal pain, diarrhea and nausea; Denies change in stool character, hematemesis, hematochezia, melena, rectal bleeding or vomiting Genitourinary Genitourinary ED: Reports none; Denies abdominal discomfort, anuria, dysuria, genital pain or polyuria Musculoskeletal Musculoskeletal: Reports none; Denies arthralgias, back pain, difficulty walking, extremity pain, muscle weakness or myalgias Integumentary Reports none; Denies abscess or rash Neurologic Neurologic: Reports none; Denies abnormal gait, confusion, focal weakness, frequent falls, headache(s), loss of vision, numbness, paresthesias, radicular pain, vertigo or weakness Psychiatric Psychiatric: Reports systems reviewed and no addt'l complaints, except as documented and none; Denies behavioral changes, confusion, difficulty concentrating, hallucinations, suicidal ideation, tactile hallucinations or visual hallucinations Endocrine Endocrinology: Denies none, cold intolerance, excessive sweating, fatigue or heat intolerance Hematologic/Lymphatic Hematologic/Lymphatic: Reports none; Denies anemia, easy bleeding or easy bruising Allergic/Immunologic Allergic/Immunologic ED: Denies as per HPI, none, lip swelling, mouth swelling, throat swelling, tongue swelling or hives EXAM Physical Exam Const Vital Signs: 11/24/20 14:50 11/24/20 17:00 Temperature 97.3 F L Temperature Source Temporal Pulse Rate 71 56 L Respiratory Rate 18 14 Blood Pressure 123/71 H 128/90 H Blood Pressure Mean 88 102 Pulse Ox 99 99 Oxygen Delivery Method Room Air Room Air Positive well nourished and well developed General Appearance ED: well developed and NAD HEENT Reports TM's clear and moist mucous membranes normocephalic and atraumatic; Negative for trauma or tenderness Tympanic Membrane ED: Yes TM's clear Eyes PERRL and EOMs intact bilaterally General Eye ED: Negative for pale conjunctiva or scleral icterus Neck no lymphadenopathy, supple and no JVD General: Negative for tenderness Chest Wall inspection of chest normal and palpation of chest normal Chest: Negative for tenderness Resp normal respiratory effort and clear to auscultation bilaterally Effort and Inspection: Negative for respiratory distress or pain with movement Auscultation: Negative for rhonchi, wheezes or diminished lung sounds Cardio regular rate, regular rhythm, S1 normal heart sound, S2 normal heart sound and no murmurs Peripheral Pulses: pulses 2+ throughout GI normal to inspection, nondistended, normoactive bowel sounds, soft to palpation, non-distended and no masses GI Narrative: Patient has tenderness palpation in the left lower quadrant with some guarding. There is no rebound, rigidity, or peritoneal signs. Back/Spine no CVA tenderness and no thoracic nor lumbar tenderness Extremity normal to inspection General Extremety ED: Negative for edema General Extremity: Negative for edema Neuro oriented x3, CN's II-XII intact bilaterally, no sensory deficits noted and gait normal Sensorium / Orientation: awake, alert, oriented to person, oriented to place and oriented to time Motor Exam: strength 5/5 throughout and strength abnormal Psych mental status grossly normal Skin no rashes or lesions noted and no wounds MDM MDM MDM Narrative Medical decision making narrative: Case discussed with general surgeon on-call Dr. Morrison who will present to evaluate patient for admission. There is concern for complicated diverticulitis. Lab Data Attestation: I reviewed the patient's lab results. Labs: Laboratory Results - last 24 hr 11/24/20 11/24/20 11/24/20 15:20 15:20 16:20 WBC 11.9 H RBC 5.33 Hgb 15.3 Hct 47.3 MCV 88.7 MCH 28.7 MCHC 32.3 RDW Std Deviation 39.9 RDW Coeff of Omar 12.2 Plt Count 272 MPV 9.0 Immature Gran % (Auto) 0.500 Neut % (Auto) 83.3 H Lymph % (Auto) 8.8 L [place] % (Auto) 7.1 Eos % (Auto) 0.1 Baso % (Auto) 0.2 Absolute Neuts (auto) 9.9 H Absolute Lymphs (auto) 1.05 Nucleated RBC % 0 Sodium 134 L Potassium 5.0 Chloride 104 Carbon Dioxide 30.0 Anion Gap 0 L BUN 8 Creatinine 1.00 Estim Creat Clear Calc 105.62 Est GFR (MDRD) Af Amer 106 Est GFR (MDRD) Non-Af 87 BUN/Creatinine Ratio 8.0 L Glucose 165 H Lactic Acid Calcium 9.0 Urine Color Yellow Urine Clarity Sl. Cloudy Urine pH 6.5 Ur Specific [place] 1.010 Urine Protein Negative Urine Glucose (UA) Normal Urine Ketones Negative Urine Occult Blood 10 H Urine Nitrite Negative Urine Bilirubin Negative Urine Urobilinogen Normal Ur Leukocyte Esterase 25 H Urine RBC 0-5 SEEN Urine WBC 0-5 SEEN Ur Squamous Epith Cells 0-5 SEEN Urine Bacteria 0 SEEN Urine Mucus 0 SEEN 11/24/20 17:07 WBC RBC Hgb Hct MCV MCH MCHC RDW Std Deviation RDW Coeff of Omar Plt Count MPV Immature Gran % (Auto) Neut % (Auto) Lymph % (Auto) [place] % (Auto) Eos % (Auto) Baso % (Auto) Absolute Neuts (auto) Absolute Lymphs (auto) Nucleated RBC % Sodium Potassium Chloride Carbon Dioxide Anion Gap BUN Creatinine Estim Creat Clear Calc Est GFR (MDRD) Af Amer Est GFR (MDRD) Non-Af BUN/Creatinine Ratio Glucose Lactic Acid 1.2 Calcium Urine Color Urine Clarity Urine pH Ur Specific [place] Urine Protein Urine Glucose (UA) Urine Ketones Urine Occult Blood Urine Nitrite Urine Bilirubin Urine Urobilinogen Ur Leukocyte Esterase Urine RBC Urine WBC Ur Squamous Epith Cells Urine Bacteria Urine Mucus Radiography Diagnostic Testing: Radiology Impression Abdomen/Pelvis CT 11/24/20 16:38 IMPRESSION: Acute sigmoid diverticulosis. There is a single large inflamed diverticula filled with air in this area which could also represent a contained perforation. No focal fluid collection. Electronically Signed: Sonny Aguayo MD at 18:30 EDT Tel , Service support , Discharge Plan Triage Chief Complaint: Nausea/Vomiting ED Provider: Alfredo Jesus Dx/Rx/DC Orders Clinical Impression: Diverticulitis, Abdominal pain Prescriptions: No Action multivitamin with minerals 1 EACH tablet 1 ea PO DAILY RF: 0 ciprofloxacin HCl [Cipro] 500 mg tablet 500 mg PO BID 14 Days Qty: 28 RF: 0 metronidazole 500 mg tablet 500 mg PO Q6H 14 Days Qty: 56 RF: 0 hydrocodone-acetaminophen 5-325 mg tablet 1 tab PO Q4H 5 Days Qty: 14 RF: 0 Primary Care Provider: Russ Rai Referrals: Russ Rai MD [Primary Care Provider] - Disposition Disposition: Acute Care [facility]
[2020-11-24 17:00] VITALS: BP 128/90; PULSE 56; RESP 14; O2SAT 99
[2020-11-24] MEDS: 0.9% Normal Saline 1,000 ML 125 ML IV ×2 (17:00→21:24)
[2020-11-24 17:35] LABS: Lactic Acid 1.2 mmol/L (0.4-1.9)
[2020-11-24 19:45] VITALS: BP 130/87; PULSE 56; RESP 14; TEMP 36.3; O2SAT 97
[2020-11-24 19:56] VITALS: BP 129/69; PULSE 65; RESP 18; TEMP 36.3; O2SAT 98
[2020-11-24 19:59] VITALS: BMI 28.8
--- NOTE | 2020-11-24 20:43 | HP.PCM_ITS ---
HPI - General General Date of Admission: 11/24/20 HPI Narrative RINKU CHAVEZ, is a 40 M who presents to [facility] with complaints of severe abdominal pain, nausea, diarrhea, and diaphoresis. Notably this is the patient's third presentation since October for similar symptoms. In October he was first diagnosed with acute diverticulitis and was prescribed a 10-day course of Cipro and Flagyl. Although the patient was unable to eat for 5 days, he was able to resolve things spontaneously. Then on 11/18/2020 Mr. Chavez had recurrence of his left lower quadrant abdominal pain. He presented to his PCP and then our ER again with this complaint. At that time he underwent CT of the abdomen and pelvis which showed evidence of acute diverticulitis and was prescribed a second regimen of Cipro and Flagyl. Mr. Chavez states that he is taken this religiously but when the intense symptoms occurred earlier today while having a watery bowel movement he decided to seek evaluation. His ER work-up was notable for persistent leukocytosis (on the 11/20 labs his white count was 13.6 and today 11/24 that value is 11.9) as well as CT imaging suggesting possibility of a contained perforation and persistent acute diverticulitis. Mr. Chavez states that he is experienced a approximately 30 pound weight loss in the last 6 weeks since his initial diagnosis of diverticulitis. He states this is largely due to restricting his diet but there has been additional social stressors contributing. Mr. Chavez denies any personal history of inflammatory bowel disease or other GI diagnoses. Familially, he states his grandmother had problems with diverticulitis but denies any other awareness of GI malignancies. [facility] Medical History Acute diverticulitis Alcohol abuse Fatty liver Home Medications multivitamin with minerals 1 ea PO DAILY 08/13/19 [History Last Taken Unknown] ciprofloxacin HCl [Cipro] 500 mg PO BID 14 Days #28 tab 11/20/20 [Rx Last Taken Unknown] hydrocodone-acetaminophen 1 tab PO Q4H 5 Days #14 tab 11/20/20 [Rx Last Taken Unknown] metronidazole 500 mg PO Q6H 14 Days #56 tab 11/20/20 [Rx Last Taken Unknown] escitalopram oxalate 10 mg PO DAILY 11/24/20 [History Last Taken Unknown] Allergy/AdvReac Type Severity Reaction Status Date / Time Penicillins Allergy Unknown Verified 11/24/20 14:55 Surgical History Hx of shoulder surgery Social History Smoking Status: Former smoker Vital Signs Vital Signs Vital Signs: 11/24/20 14:50 11/24/20 17:00 11/24/20 19:45 Temperature 97.3 F L 97.3 F L Temperature Source Temporal Oral Pulse Rate 71 56 L 56 L Respiratory Rate 18 14 14 Blood Pressure 123/71 H 128/90 H 130/87 H Blood Pressure Mean 88 102 101 Blood Pressure Source Blood Pressure Position Blood Pressure Location Pulse Ox 99 99 97 Oxygen Delivery Method Room Air Room Air 11/24/20 19:56 Temperature 97.3 F L Temperature Source Temporal Pulse Rate 65 Respiratory Rate 18 Blood Pressure 129/69 H Blood Pressure Mean 89 Blood Pressure Source Monitor Blood Pressure Position Supine Blood Pressure Location Right Forearm Pulse Ox 98 Oxygen Delivery Method Room Air Weight Weight: 212 lb 1.355 oz Body Mass Index (BMI) 28.8 Physical Exam Const alert, oriented x3 and no apparent distress General Appearance: cooperative GI soft to palpation Palpation: tender LLQ and guarding LLQ (Mild voluntary) Results Lab / Micro Data Result Diagrams: 11/24/20 15:20 11/24/20 15:20 Labs: Laboratory Results - last 24 hr 11/24/20 15:20: WBC 11.9 H, RBC 5.33, Hgb 15.3, Hct 47.3, MCV 88.7, MCH 28.7, MCHC 32.3, RDW Std Deviation 39.9, RDW Coeff of Omar 12.2, Plt Count 272, MPV 9.0, Immature Gran % (Auto) 0.500, Neut % (Auto) 83.3 H, Lymph % (Auto) 8.8 L, [place] % (Auto) 7.1, Eos % (Auto) 0.1, Baso % (Auto) 0.2, Absolute Neuts (auto) 9.9 H, Absolute Lymphs (auto) 1.05, Nucleated RBC % 0 11/24/20 15:20: Sodium 134 L, Potassium 5.0, Chloride 104, Carbon Dioxide 30.0, Anion Gap 0 L, BUN 8, Creatinine 1.00, Estim Creat Clear Calc 105.62, Est GFR (MDRD) Af Amer 106, Est GFR (MDRD) Non-Af 87, BUN/Creatinine Ratio 8.0 L, Glucose 165 H, Calcium 9.0 11/24/20 16:20: Urine Color Yellow, Urine Clarity Sl. Cloudy, Urine pH 6.5, Ur Specific [place] 1.010, Urine Protein Negative, Urine Glucose (UA) Normal, Urine Ketones Negative, Urine Occult Blood 10 H, Urine Nitrite Negative, Urine Bilirubin Negative, Urine Urobilinogen Normal, Ur Leukocyte Esterase 25 H, Urine RBC 0-5 SEEN, Urine WBC 0-5 SEEN, Ur Squamous Epith Cells 0-5 SEEN, Urine Bacteria 0 SEEN, Urine Mucus 0 SEEN 11/24/20 17:07: Lactic Acid 1.2 Radiology Impression Abdomen/Pelvis CT 11/24/20 16:38 IMPRESSION: Acute sigmoid diverticulosis. There is a single large inflamed diverticula filled with air in this area which could also represent a contained perforation. No focal fluid collection. Electronically Signed: Sonny Aguayo MD at 18:30 EDT Tel , Service support , Assessment & Plan Assessment/Plan (1) Diverticulitis of large intestine with complication: PLAN: This is a 40-year-old male with symptoms of recurrent, acute diverticulitis. It appears this is continuation of a second episode from first diagnosis back in October. Patient CT imaging is reviewed from both 11/20/2020 and 11/24/2020. Both series indicate a loculation of extraluminal air outside of the sigmoid colon. This would be consistent with a Hinchey 1 complicated diverticulitis. Patient is well into a second course of oral Cipro and Flagyl with intensification of his pain and persistent leukocytosis. Given this progression of his condition and the complicated nature of this diverticulitis I have admitted him for bowel rest and IV antibiotic therapy. He has a history of a penicillin allergy as a child but is unable to recall a specific reaction. Therefore I would like to start him on cefepime since no cross-reactivity has been proven in addition to IV Flagyl. Neuro: As needed acetaminophen, as needed Dilaudid Pulm/CV: No current issues FEN/GI: Daily labs, trend potassium, n.p.o. except for meds and sips Heme/ID: Daily labs to trend white count, IV cefepime and Flagyl Endo: No current issues Proph: Activity ad pepe. patient encouraged to walk. Dispo: Continue inpatient stay targeting normalization of white count and resolution of abdominal pains Charges/Coding Visit Charges Inpatient E&M: 67552 Init Hosp L2
[2020-11-24] MEDS: metroNIDAZOLE 500 MG/100 ML BAG 100 MG IV (21:24)
[2020-11-24] MEDS: HYDROmorphone 0.5 MG/0.5 ML SYRINGE IV (21:33)
[2020-11-25 02:25] VITALS: BP 126/81; PULSE 63; RESP 16; TEMP 36.4; O2SAT 96
[2020-11-25] MEDS: HYDROmorphone 0.5 MG/0.5 ML SYRINGE IV ×2 (02:27→13:34)
[2020-11-25] MEDS: metroNIDAZOLE 500 MG/100 ML BAG 100 MG IV ×3 (05:22→21:43)
[2020-11-25 06:23] LABS: Absolute Lymphocyte Count 1.42 X10^3/uL (0.83-4.51); Absolute Neutrophil Count 6.2 X10^3/uL (2.0-7.7); Basophil# 0.03 X10^3/uL; Basophil% 0.3 % (0-1); Eosinophil# 0.03 X10^3/uL; Eosinophils% 0.3 % (0-5); Hematocrit 44.2 % (40-54); Lymphocyte # 1.42 X10^3/ul (0.83-4.51); Lymphocyte % 16.3 % (19-41); Mean Corp Hgb Conc 31.7 g/dL (32-36); Mean Corpuscular Hgb 28.4 pg (27.0-32.0); Mean Corpuscular Volume 89.7 fL (80-94); Mean Platelet Vol. 9.4 fl (6.2-12.0); Monocyte# 1.03 X10^3/uL; Monocyte% 11.8 % (0-10); NRBC Flagged by Analyzer 0 % (0-5); Neutrophil # 6.17 X10^3/uL (2.7-7.7); Neutrophil % 70.7 % (47-70); Platelet Count 254 K/mm3 (150-450); RBC Distribution Width CV 12.4 % (11.6-14.6); RBC Distribution Width SD 40.7 fl (35.1-43.9); Red Blood Count 4.93 M/mm3 (4.6-6.2); White Blood Count 8.7 K/mm3 (4.4-11.0)
[2020-11-25 06:47] LABS: Anion Gap 3 (5-15); BUN 8 mg/dL (7-18); BUN/Creat Ratio 8.1 RATIO (10-20); Calcium,Total 8.4 mg/dL (8.5-10.1); Chloride 108 mmol/L (98-107); Creatinine, Serum 0.99 mg/dL (0.70-1.30); EST Glomerular Filtration Rate 88 mL/min (>60); Est Glom Filt Rate - Afr Amer 106 mL/min (>60); Estimated Creatinine Clearance 106.69 ml/min; Glucose 96 mg/dL (74-106); Magnesium 2.1 mg/dL (1.6-2.6); Phosphorus 3.2 mg/dL (2.5-4.9); Potassium 4.1 mmol/L (3.5-5.1); Sodium Level 139 mmol/L (136-145)
[2020-11-25 08:05] VITALS: PULSE 58
[2020-11-25 08:12] VITALS: BP 97/64; PULSE 58; RESP 18; TEMP 37.2; O2SAT 96
[2020-11-25] MEDS: 0.9% Normal Saline 1,000 ML 125 ML IV ×2 (08:21→20:20)
--- NOTE | 2020-11-25 10:30 | PN.SURG_ITS ---
Subjective Subjective Patient was seen and examined during AM rounds. He was found on the commode having had a second bowel movement of this admission. He states this bowel movement is more watery than his previous. He denies any improvements in his abdominal pain. He denies any recurrence of his fever/chills and sweating. Objective Data Objective Data Vital Signs: Vital Signs Temp Pulse Resp BP Pulse Ox 98.9 F 58 L 18 97/64 96 11/25/20 08:12 11/25/20 08:12 11/25/20 08:12 11/25/20 08:12 11/25/20 08:12 Oxygen Delivery Method Room Air Weight: 212 lb 1.355 oz Body Mass Index (BMI) 28.8 Intake & Output: Intake and Output for Last 24 Hours 11/23/20 11/24/20 11/25/20 23:59 23:59 23:59 Intake Total 575 / 575 1352.08 / 1352.08 Balance 575 / 575 1352.08 / 1352.08 Lab / Micro Data Result Diagrams: 11/25/20 05:15 11/25/20 05:15 Labs: Laboratory Results - last 24 hr 11/24/20 15:20: WBC 11.9 H, RBC 5.33, Hgb 15.3, Hct 47.3, MCV 88.7, MCH 28.7, MCHC 32.3, RDW Std Deviation 39.9, RDW Coeff of Omar 12.2, Plt Count 272, MPV 9.0, Immature Gran % (Auto) 0.500, Neut % (Auto) 83.3 H, Lymph % (Auto) 8.8 L, [place] % (Auto) 7.1, Eos % (Auto) 0.1, Baso % (Auto) 0.2, Absolute Neuts (auto) 9.9 H, Absolute Lymphs (auto) 1.05, Nucleated RBC % 0 11/24/20 15:20: Sodium 134 L, Potassium 5.0, Chloride 104, Carbon Dioxide 30.0, Anion Gap 0 L, BUN 8, Creatinine 1.00, Estim Creat Clear Calc 105.62, Est GFR (MDRD) Af Amer 106, Est GFR (MDRD) Non-Af 87, BUN/Creatinine Ratio 8.0 L, Glucose 165 H, Calcium 9.0 11/24/20 16:20: Urine Color Yellow, Urine Clarity Sl. Cloudy, Urine pH 6.5, Ur Specific [place] 1.010, Urine Protein Negative, Urine Glucose (UA) Normal, Urine Ketones Negative, Urine Occult Blood 10 H, Urine Nitrite Negative, Urine Bilirubin Negative, Urine Urobilinogen Normal, Ur Leukocyte Esterase 25 H, Urine RBC 0-5 SEEN, Urine WBC 0-5 SEEN, Ur Squamous Epith Cells 0-5 SEEN, Urine Bacteria 0 SEEN, Urine Mucus 0 SEEN 11/24/20 17:07: Lactic Acid 1.2 11/25/20 05:15: WBC 8.7, RBC 4.93, Hgb 14.0, Hct 44.2, MCV 89.7, MCH 28.4, MCHC 31.7 L, RDW Std Deviation 40.7, RDW Coeff of Omar 12.4, Plt Count 254, MPV 9.4, Immature Gran % (Auto) 0.600, Neut % (Auto) 70.7 H, Lymph % (Auto) 16.3 L, [place] % (Auto) 11.8 H, Eos % (Auto) 0.3, Baso % (Auto) 0.3, Absolute Neuts (auto) 6.2, Absolute Lymphs (auto) 1.42, Nucleated RBC % 0 11/25/20 05:15: Sodium 139, Potassium 4.1, Chloride 108 H, Carbon Dioxide 28.0, Anion Gap 3 L, BUN 8, Creatinine 0.99, Estim Creat Clear Calc 106.69, Est GFR (MDRD) Af Amer 106, Est GFR (MDRD) Non-Af 88, BUN/Creatinine Ratio 8.1 L, Glucose 96, Calcium 8.4 L, Phosphorus 3.2, Magnesium 2.1 Micro: Microbiology 11/25/20 05:48 Stool Enteric Bacteriology - Final 11/25/20 05:48 Stool C. difficile DNA Amplification - Final Radiography Diagnostic Testing: Radiology Impression Abdomen/Pelvis CT 11/24/20 16:38 IMPRESSION: Acute sigmoid diverticulosis. There is a single large inflamed diverticula filled with air in this area which could also represent a contained perforation. No focal fluid collection. Electronically Signed: Sonny Aguayo MD at 18:30 EDT Tel , Service support , Physical Exam GI GI Narrative: Persistent left lower quadrant tenderness Assessment & Plan Assessment/Plan (1) Diverticulitis of large intestine with complication: PLAN: Neuro: As needed Tylenol and as needed IV Dilaudid Pulm/CV: No current issues FEN/GI: Patient's potassium has decreased to more middle of the range of normal. Other electrolytes are also in range of normal. Continue n.p.o. status for bowel rest and monitoring patient's abdominal pains. Heme/ID: Patient CBC shows improvement in his white count. Leukocytosis has decreased to 8.7 from 11.9 and is now in the range of normal Endo: No current issues Proph: Encourage ambulation Dispo: Continue inpatient stay for complicated diverticulitis Charges/Coding Visit Charges Inpatient E&M: 93844 Subs Hosp L2
--- NOTE | 2020-11-25 12:15 | CASEMGMT ---
HANDY YADAV Assessment: Face to Face with patient for initial transition planning/care coordination assessment. HANDY YADAV introduced self and role at [facility], pt voices understanding and consents to assessment. Pt is lying in bed in no distress on room air. Pt is A/Ox4 and answers all questions approrpiately. Care providers, pharmacy, and demographics verified. Presentation: Pt had BM, diaphoretic, nausea, abd pain Admitting dx: Diverticulitis, Abd pain PCP: Fredi Specialists: Dimple, surgeon; shane Richter Preferred Pharmacy: [facility] Insurance: MMO Prescription Benefit: MMO Living Will/HPOA: Pt states has LW/HPOA and is aware that they are not on file at [facility]. Pt states his mother, Paloma Chavez, is HPOA. LNOK: Paloma Chavez, mother/HPOA Living Arrangements: Pt states lives alone in home and states no concerns at home. Pt states is independent with ADL's. Transportation: Pt states drives self and states no transportation concerns. DME/HHC: Pt states no current DME or need for any DME. Pt states no hx of HHC or SNF. Pt states no concerns with going home at time of discharge. 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 Pt states does not smoke cigarettes but does occasionally drink ETOH. Pt states no further concerns/needs. CM to follow for any further discharge planning/needs. Advised pt to ask for CM if any further questions/concerns/needs arise, voices understanding. Pt Goal: Home Plan[place] HANDY YADAV
[2020-11-25] MEDS: 0.9% Saline Lock 10 ML Syringe IV (13:34)
[2020-11-25 16:13] VITALS: BP 125/83; PULSE 58; RESP 16; TEMP 36.1; O2SAT 98
[2020-11-25 18:14] VITALS: BP 124/68; PULSE 48
--- NOTE | 2020-11-25 18:16 | NURSING ---
Pt was in bathroom when he got sharp pain to both lower qauds and felt lightheaded, nauseated and diaphoretic. [facility] Pt states he had this episode at home as well and why he came to the hospital. Pt Vitals taken, HR is 48-51.
[2020-11-25 20:09] VITALS: BP 109/63; PULSE 65; RESP 16; TEMP 37.2; O2SAT 99
[2020-11-26 02:29] VITALS: BP 97/59; PULSE 64; RESP 16; TEMP 36.9; O2SAT 98
[2020-11-26] MEDS: metroNIDAZOLE 500 MG/100 ML BAG 100 MG IV ×2 (05:19→13:40)
[2020-11-26] MEDS: 0.9% Normal Saline 1,000 ML 125 ML IV ×3 (05:19→22:43)
[2020-11-26 07:26] LABS: Absolute Lymphocyte Count 1.08 X10^3/uL (0.83-4.51); Absolute Neutrophil Count 5.9 X10^3/uL (2.0-7.7); Basophil# 0.02 X10^3/uL; Basophil% 0.2 % (0-1); Eosinophil# 0.01 X10^3/uL; Eosinophils% 0.1 % (0-5); Hematocrit 44.1 % (40-54); Hemoglobin 14.1 g/dL (13.0-16.5); Lymphocyte # 1.08 X10^3/ul (0.83-4.51); Lymphocyte % 13.4 % (19-41); Mean Corpuscular Hgb 28.4 pg (27.0-32.0); Mean Corpuscular Volume 88.7 fL (80-94); Mean Platelet Vol. 9.1 fl (6.2-12.0); Monocyte# 1.01 X10^3/uL; Monocyte% 12.6 % (0-10); NRBC Flagged by Analyzer 0 % (0-5); Neutrophil # 5.85 X10^3/uL (2.7-7.7); Platelet Count 234 K/mm3 (150-450); RBC Distribution Width CV 12.2 % (11.6-14.6); RBC Distribution Width SD 39.9 fl (35.1-43.9); Red Blood Count 4.97 M/mm3 (4.6-6.2)
[2020-11-26 08:14] LABS: Anion Gap 7 (5-15); BUN 7 mg/dL (7-18); BUN/Creat Ratio 7.9 RATIO (10-20); Calcium,Total 8.7 mg/dL (8.5-10.1); Chloride 106 mmol/L (98-107); Creatinine, Serum 0.88 mg/dL (0.70-1.30); EST Glomerular Filtration Rate 101 mL/min (>60); Est Glom Filt Rate - Afr Amer 122 mL/min (>60); Estimated Creatinine Clearance 120.03 ml/min; Glucose 91 mg/dL (74-106); Potassium 4.5 mmol/L (3.5-5.1); Sodium Level 140 mmol/L (136-145)
[2020-11-26 08:36] VITALS: BP 115/72; PULSE 68; RESP 16; TEMP 36.8; O2SAT 97
--- NOTE | 2020-11-26 12:20 | PN.SURG_ITS ---
Subjective Subjective Patient was seen and examined during AM rounds. He reports that he is feeling much better after an episode of acute pain and diaphoresis last evening.At that time his blood pressure was noted to be normal but his heart rate had dropped and nursing notified me of this change. Presuming a vagal event I ordered a 500 cc bolus.Mr. Chavez states that he is feeling very minimal discomfort and did have a another bowel movement. He expresses significant hunger at this time. Objective Data Objective Data Vital Signs: Vital Signs Temp Pulse Resp BP Pulse Ox 98.3 F 68 16 115/72 97 11/26/20 08:36 11/26/20 08:36 11/26/20 08:36 11/26/20 08:36 11/26/20 08:36 Oxygen Delivery Method Room Air Weight: 212 lb 1.355 oz Body Mass Index (BMI) 28.8 Intake & Output: Intake and Output for Last 24 Hours 11/24/20 11/25/20 11/26/20 23:59 23:59 23:59 Intake Total 575 / 575 3000.00 / 3000.00 1739.58 / 1739.58 Balance 575 / 575 3000.00 / 3000.00 1739.58 / 1739.58 Medical Nutrition Assessment Dietitian: Malnutrition Criteria Met Start: 11/25/20 14: 55 Freq: Status: Active Protocol: Document 11/25/20 14:55 BP (Rec: 11/25/20 14:55 BP [id number]) Nutrition Malnutrition Evidence of Malnutrition Exists Yes Malnutrition (severe): Acute Illness/Injury Evidenced By Suboptimal Energy Intake ( Severe),Weight Loss (Severe) Clinical Problem Acute Disease or Injury Related Malnutrition Etiology Severe malnutrition in the context of acute illness related to inadequate oral intake and altered GI function Signs/Symptoms as evidenced by pt report consuming </=50% energy intake compared to estimated energy needs x 1 week due to severe diarrhea almost immediately after eating and decreased appetite, pt report unintentional wt loss of 13% x 6 weeks, and notes clothing ill fitting/significantly looser. Status Active Problem Recommendation Dietitian Recommendations/Changes Rec STEVE transitional with goal of regular as pt medically able. Lab / Micro Data Result Diagrams: 11/26/20 07:10 11/26/20 07:10 Labs: Laboratory Results - last 24 hr 11/26/20 07:10: WBC 8.0, RBC 4.97, Hgb 14.1, Hct 44.1, MCV 88.7, MCH 28.4, MCHC 32.0, RDW Std Deviation 39.9, RDW Coeff of Omar 12.2, Plt Count 234, MPV 9.1, Immature Gran % (Auto) 0.700, Neut % (Auto) 73.0 H, Lymph % (Auto) 13.4 L, [place] % (Auto) 12.6 H, Eos % (Auto) 0.1, Baso % (Auto) 0.2, Absolute Neuts (auto) 5.9, Absolute Lymphs (auto) 1.08, Nucleated RBC % 0 11/26/20 07:10: Sodium 140, Potassium 4.5, Chloride 106, Carbon Dioxide 27.0, Anion Gap 7, BUN 7, Creatinine 0.88, Estim Creat Clear Calc 120.03, Est GFR (MDRD) Af Amer 122, Est GFR (MDRD) Non-Af 101, BUN/Creatinine Ratio 7.9 L, Glucose 91, Calcium 8.7, Phosphorus 3.0, Magnesium 2.0 Micro: Microbiology 11/25/20 05:48 Stool Enteric Bacteriology - Final 11/25/20 05:48 Stool C. difficile DNA Amplification - Final Physical Exam Const oriented x3 and no apparent distress Resp normal respiratory effort GI Inspection: Negative for abdominal distention Palpation: tender LLQ (Mild with deep palpation, improved) Assessment & Plan Assessment/Plan (1) Diverticulitis of large intestine with complication: PLAN: Neuro: As needed Tylenol and as needed IV Dilaudid Pulm/CV: No current issues FEN/GI:Advance to a clear liquid diet and monitor for tolerance. Patient does okay with this he may be advanced to a full liquid diet later today. Heme/ID: Patient CBC Again shows resolution of patient's earlier leukocytosis. If he does okay with his diet advancement we will transition him to oral antibiotics. Endo: No current issues Proph: Encourage ambulation Dispo: Continue inpatient stay for complicated diverticulitis Charges/Coding Visit Charges Inpatient E&M: 90434 Subs Hosp L2
[2020-11-26 14:26] VITALS: BP 131/72; PULSE 91; RESP 16; TEMP 36.9; O2SAT 97
[2020-11-26 21:12] VITALS: BP 109/73; PULSE 76; RESP 18; TEMP 36.8; O2SAT 97
[2020-11-26] MEDS: metroNIDAZOLE 500 MG Tablet PO (21:12)
[2020-11-27 03:53] VITALS: BP 112/74; PULSE 65; RESP 16; TEMP 36.3; O2SAT 97
[2020-11-27] MEDS: levoFLOXacin 750 MG Tablet PO (05:05)
[2020-11-27] MEDS: metroNIDAZOLE 500 MG Tablet PO ×3 (05:05→21:17)
[2020-11-27] MEDS: 0.9% Normal Saline 1,000 ML 125 ML IV (06:24)
[2020-11-27 08:17] VITALS: BP 125/83; PULSE 61; RESP 18; TEMP 36.1; O2SAT 98
[2020-11-27] MEDS: 0.9% Saline Lock 10 ML Syringe IV ×3 (10:33→21:13)
[2020-11-27 13:53] VITALS: BP 106/70; PULSE 71; RESP 18; TEMP 36.8; O2SAT 98
--- NOTE | 2020-11-27 14:11 | PCM.PN.SRG ---
Subjective Subjective Patient was seen and examined during morning and afternoon rounds. This morning he reported further improvement in his abdominal pains. He had not yet had a chance to try his full liquid diet. By this afternoon the patient had taken the full meal that was served to him and he denies any subsequent nausea or vomiting but did experience significant abdominal cramping that led to a bout of diarrhea. Objective Data Objective Data Vital Signs: Vital Signs Temp Pulse Resp BP Pulse Ox 98.2 F 71 18 106/70 98 11/27/20 13:53 11/27/20 13:53 11/27/20 13:53 11/27/20 13:53 11/27/20 13:53 Oxygen Delivery Method Room Air Weight: 212 lb 1.355 oz Body Mass Index (BMI) 28.8 Intake & Output: Intake and Output for Last 24 Hours 11/25/20 11/26/20 11/27/20 23:59 23:59 23:59 Intake Total 3000.00 / 3000.00 4262.50 / 4262.50 1080.42 / 1080.42 Balance 3000.00 / 3000.00 4262.50 / 4262.50 1080.42 / 1080.42 Medical Nutrition Assessment Dietitian: Malnutrition Criteria Met Start: 11/25/20 14:55 Freq: Status: Active Protocol: Document 11/25/20 14:55 BP (Rec: 11/25/20 14:55 BP [id number]) Nutrition Malnutrition Evidence of Malnutrition Exists Yes Malnutrition (severe): Acute Illness/Injury Evidenced By Suboptimal Energy Intake ( Severe),Weight Loss (Severe) Clinical Problem Acute Disease or Injury Related Malnutrition Etiology Severe malnutrition in the context of acute illness related to inadequate oral intake and altered GI function Signs/Symptoms as evidenced by pt report consuming </=50% energy intake compared to estimated energy needs x 1 week due to severe diarrhea almost immediately after eating and decreased appetite, pt report unintentional wt loss of 13% x 6 weeks, and notes clothing ill fitting/significantly looser. Status Active Problem Recommendation Dietitian Recommendations/Changes Rec STEVE transitional with goal of regular as pt medically able. Lab / Micro Data Result Diagrams: 11/26/20 07:10 11/26/20 07:10 Micro: Microbiology 11/25/20 05:48 Stool Enteric Bacteriology - Final 11/25/20 05:48 Stool C. difficile DNA Amplification - Final Physical Exam Const oriented x3 Resp normal respiratory effort GI soft to palpation GI Narrative: Patient with mild tenderness in the left lower quadrant with deep palpation, improving Assessment & Plan Assessment/Plan (1) Diverticulitis of large intestine with complication: PLAN: Patient making slow improvements with complicated diverticulitis. He has been transitioned to oral antibiotics and a full liquid diet. My intent is to discharge him on this diet for at least 1 week post hospital and slowly advance. Following his full liquids earlier today he did experience significant abdominal cramping so I would like to see him tolerate this for at least 1 meal before we plan for discharge. Neuro: As needed Tylenol and as needed IV Dilaudid Pulm/CV: No current issues FEN/GI: Continue full liquid diet. Heme/ID: Currently on p.o. Levaquin and Flagyl. Total course of 14 days Endo: No current issues Proph: Encourage ambulation Dispo: Continue inpatient stay for complicated diverticulitis Charges/Coding Visit Charges Inpatient E&M: 72239 Subs Hosp L2
[2020-11-27] MEDS: HYDROmorphone 0.5 MG/0.5 ML SYRINGE IV ×2 (14:21→21:14)
--- NOTE | 2020-11-27 16:02 | CHAPLAIN ---
Type of Pastoral Visit _x__ Initial Visit ___ Follow-up Visit ___ On-call Visit ___ General Patient Visit ___ Spiritual Assessment ___ Family Conference ___ Bereavement ___ Rapid Response ___ Code Blue ___ Other (describe below) Pastoral Care Referral From _x__ Patient ___ Family _x__ Nurse ___ Physician ___ Greens Cutter ___ Director Security Risk Management ___ Other (describe below) Sacrament/Intervention _x__ Active listening ___ Anointing ___ Religious ___ Bereavement ___ Communion _x__ Karey exploration ___ _x__ Life review _x__ Prayer ___ Reconciliation ___ Sacrament of Sick _x__ Supportive presence ___ Wedding ___ Other (describe below) Pastoral Comments RN notified this waste baler that patient is tearful and would benefit from spiritual care consult; entered room to find pt awake, sitting up in bed, and quietly crying; pt welcomed the presence and support of this waste baler; pt gives a list of difficult life experiences that he has endured in last few months; pt acknowledges a relationship break up and personal counseling that he is doing at this time; other family members are also sick currently and he has anxiety about a number of things; time to sit and listen given to patient; explored with pt those things that make him positive and hopeful; pt also has a strong connection to a local roman catholic and finds his karey to be helpful to him; pt welcomes prayer and expresses thankfulness for time given to him; pt is noticeably more relaxed at this time
[2020-11-27 21:11] VITALS: BP 124/81; PULSE 71; RESP 18; TEMP 36.6; O2SAT 98
[2020-11-28 06:20] VITALS: BP 109/77; PULSE 64; RESP 16; TEMP 36.3; O2SAT 98
[2020-11-28] MEDS: metroNIDAZOLE 500 MG Tablet PO (06:23)
[2020-11-28] MEDS: levoFLOXacin 750 MG Tablet PO (06:23)
--- NOTE | 2020-11-28 09:05 | PCM.PN.SRG ---
Subjective Subjective Patient seen and examined during AM rounds. He is reporting tolerance of his full liquid diet. However, he finds the menu offerings not to his liking. He does have some residual left lower quadrant pain when he is having a bowel movement or with deep palpation in a very specific location. He reports this as a 6 out of 10 pain, but otherwise is without discomfort. Objective Data Objective Data Vital Signs: Vital Signs Temp Pulse Resp BP Pulse Ox 97.3 F L 64 16 109/77 98 11/28/20 06:20 11/28/20 06:20 11/28/20 06:20 11/28/20 06:20 11/28/20 06:20 Oxygen Delivery Method Room Air Weight: 212 lb 1.355 oz Body Mass Index (BMI) 28.8 Intake & Output: Intake and Output for Last 24 Hours 11/26/20 11/27/20 11/28/20 23:59 23:59 23:59 Intake Total 4262.50 / 4262.50 2080.42 / 2079.42 Balance 4262.50 / 4262.50 2080.42 / 2079.42 Medical Nutrition Assessment Dietitian: Malnutrition Criteria Met Start: 11/25/20 14:55 Freq: Status: Active Protocol: Document 11/25/20 14:55 BP (Rec: 11/25/20 14:55 BP [id number]) Nutrition Malnutrition Evidence of Malnutrition Exists Yes Malnutrition (severe): Acute Illness/Injury Evidenced By Suboptimal Energy Intake ( Severe),Weight Loss (Severe) Clinical Problem Acute Disease or Injury Related Malnutrition Etiology Severe malnutrition in the context of acute illness related to inadequate oral intake and altered GI function Signs/Symptoms as evidenced by pt report consuming </=50% energy intake compared to estimated energy needs x 1 week due to severe diarrhea almost immediately after eating and decreased appetite, pt report unintentional wt loss of 13% x 6 weeks, and notes clothing ill fitting/significantly looser. Status Active Problem Recommendation Dietitian Recommendations/Changes Rec STEVE transitional with goal of regular as pt medically able. Lab / Micro Data Result Diagrams: 11/26/20 07:10 11/26/20 07:10 Micro: Microbiology 11/25/20 05:48 Stool Enteric Bacteriology - Final 11/25/20 05:48 Stool C. difficile DNA Amplification - Final Physical Exam Const oriented x3 and no apparent distress Resp normal respiratory effort GI GI Narrative: Soft, nondistended, focally tender in the left lower quadrant with deep palpation only Assessment & Plan Assessment/Plan (1) Diverticulitis of large intestine with complication: PLAN: Patient continuing to make that slow improvements with complicated diverticulitis. He has been transitioned to oral antibiotics and a full liquid diet. My intent is to discharge him on this diet for at least 1 week post hospital and slowly advance. He appears to be tolerating his full liquid diet, but does continue to express some weakness. I have told him we can boost his protein intake through dietary supplements such as Ensure. Neuro: As needed Tylenol and as needed IV Dilaudid Pulm/CV: No current issues FEN/GI: Continue full liquid diet. Add Ensure. Heme/ID: Currently on p.o. Levaquin and Flagyl. Total course of 14 days?currently day 5 Endo: No current issues Proph: Encourage ambulation Dispo: Anticipated discharge later today. Charges/Coding Visit Charges Inpatient E&M: 76320 Subs Hosp L2
[2020-11-28 09:36] VITALS: BP 117/74; PULSE 67; RESP 18; TEMP 36.3; O2SAT 95
--- NOTE | 2020-11-28 10:34 | DCINST_ITS ---
Discharge Instructions Diet Discharge Diet: - (Full liquid, low-residue diet X 1 week then gradually soft, low-res) Activity Discharge Activity: May Drive Dressing / Incision Call your doctor if you observe: Fever of 101 or Higher, Inability to have a bowel movement and Dizziness Suture Line Care: Avoid Pulling/Pushing Follow Up Care Please Follow Up With: Ernesto Morrison MD When: in 1 week following discharge Test Results: Test results from this visit will be discussed in further detail a t your follow-up appointment, if applicable. Discharge Plan Admission Admit Date/Time: 11/24/20 20:43 Primary Reason for Your Visit: Complicated diverticulitis Attending Provider: Ernesto Morrison Primary Care Provider: Russ Rai Instructions Patient Instructions: Diverticulosis Diverticulitis Discharge Orders/Prescriptions Prescriptions: New levofloxacin 750 mg Tablet 750 mg PO DAILY@0600 10 Days Qty: 10 RF: 0 Continued multivitamin with minerals 1 EACH tablet 1 ea PO DAILY RF: 0 metronidazole 500 mg tablet 500 mg PO Q6H 14 Days Qty: 56 RF: 0 hydrocodone-acetaminophen 5-325 mg tablet 1 tab PO Q4H 5 Days Qty: 14 RF: 0 escitalopram oxalate 10 mg tablet 10 mg PO DAILY RF: 0 Discontinued ciprofloxacin HCl [Cipro] 500 mg tablet 500 mg PO BID 14 Days Qty: 28 RF: 0 Referrals / Follow Up: Russ Rai MD [Primary Care Provider] -
--- NOTE | 2020-11-28 14:14 | NURSING ---
pt discharged. pt left behind prescription bottle for cipro which was d/c because the medication was changed. medication was disposed of in the med. distroyer bottle- 8 pills were destroyed.
--- NOTE | 2020-12-01 11:58 | PCM.DC.SUM ---
Providers Date of Admission: 11/24/20 Primary Care Physician: Dr. Russ Rai MD Reason For Visit: DIVERTICULITIS, ABDOMINAL PAIN Diagnosis Discharge Diagnosis (1) Diverticulitis of large intestine with complication: Status: Acute Code(s): K57.32 - Diverticulitis of large intestine without perforation or abscess without bleeding Medications at Discharge Home Medications multivitamin with minerals 1 ea PO DAILY 08/13/19 hydrocodone-acetaminophen 1 tab PO Q4H 5 Days #14 tab 11/20/20 metronidazole 500 mg PO Q6H 14 Days #56 tab 11/20/20 escitalopram oxalate 10 mg PO DAILY 11/24/20 levofloxacin 750 mg PO DAILY@0600 10 Days #10 tab 11/28/20 Hospital Course Operations None Procedures None Summary of Care Provided Minutes Spent on Discharge: 20 Hospital Course: Patient is a 40-year-old male who is admitted on 11/24/2020 after ER presentation for left lower quadrant abdominal pain and CT imaging demonstrating pericolonic (extraluminal) air and diverticulitis consistent with a diagnosis of complicated diverticulitis. He was initiated on bowel rest and IV antibiotic therapy. By hospital day 1 patient's white count had returned to within normal limits, however, his abdominal pain persisted. Gradually this abdominal pain did improve and he was transitioned in his diet to a full liquid, low residue restriction. He tolerated this well and after proving this tolerance he was advanced to oral antibiotics. With this transition, he was deemed suitable for discharge. Balance of a 14-day course of antibiotics was prescribed and I asked him to follow-up with me in 1 week in my clinic to assess his clinical progress. Long-range, I have asked him to plan for a colonoscopic evaluation 6 weeks after resolution of this acute episode of diverticulitis. Weight / BMI Weight Weight: 212 lb 1.355 oz Body Mass Index (BMI) 28.8 ABG / Lab / Microbiology Data Result Diagrams: 11/26/20 07:10 11/26/20 07:10 Microbiology: Microbiology 11/25/20 05:48 Stool Enteric Bacteriology - Final 11/25/20 05:48 Stool C. difficile DNA Amplification - Final D/C Instructions Discharge Diet: - (Full liquid, low-residue diet X 1 week then gradually soft, low-res) Call your doctor if you observe: Fever of 101 or Higher, Inability to have a bowel movement and Dizziness Suture Line Care: Avoid Pulling/Pushing Please Follow Up With: Ernesto Morrison MD When: in 1 week following discharge Meaningful Use Info Meaningful Use Diagnoses (Choose all that apply): None applicable Discharge Plan Admission Admit Date/Time: 11/24/20 20:43 Primary Reason for Your Visit: Complicated diverticulitis Attending Provider: Ernesto Morrison Primary Care Provider: Russ Rai Instructions Patient Instructions: Diverticulosis Diverticulitis Discharge Orders/Prescriptions Prescriptions: New levofloxacin 750 mg Tablet 750 mg PO DAILY@0600 10 Days Qty: 10 RF: 0 Continued multivitamin with minerals 1 EACH tablet 1 ea PO DAILY RF: 0 metronidazole 500 mg tablet 500 mg PO Q6H 14 Days Qty: 56 RF: 0 hydrocodone-acetaminophen 5-325 mg tablet 1 tab PO Q4H 5 Days Qty: 14 RF: 0 escitalopram oxalate 10 mg tablet 10 mg PO DAILY RF: 0 Discontinued ciprofloxacin HCl [Cipro] 500 mg tablet 500 mg PO BID 14 Days Qty: 28 RF: 0 Referrals / Follow Up: Ernesto Morrison MD [STAFF PHYSICIAN] - 12/12/20 8:30 am Russ Rai MD [Primary Care Provider] - Disposition Disposition (needs filled in before D/C Order can be placed): Home, Self Care
== END 2020-11-28 13:30 | disposition home or self-care (01) | DRG 392 ==
LOC: ED 18:43 → MS2 11-25 09:38
PROVIDERS: Admitting Provider Surgery; Emergency Provider Emergency Medicine; PCP Family Medicine; Visit Provider Surgery
DX: K57.20 Diverticulitis of large intestine with perforation and abscess without bleeding (principal); R63.4 Abnormal weight loss; Z68.28 Body mass index [BMI] 28.0-28.9, adult; Z87.891 Personal history of nicotine dependence
CPT/HCPCS: 36415; 74177; 80048; 81001; 83605; 83735; 84100; 85025; 87493; 87506; 97802; 99285; J7030; J7040; J7050; Q9967; A4216

== ENCOUNTER 2021-01-19 09:11 | Day surgery (SDC) | payer OTHER, SELFPAY ==
[2021-01-19] VITALS (7 sets, daily range): BP systolic 107–125; BP diastolic 71–76; PULSE 59–71; RESP 16; TEMP 36.1–36.2; O2SAT 94–98; BMI 27.8
[2021-01-19] MEDS: Lactated Ringers 1,000 ML 15 ML IV (09:30)
--- NOTE | 2021-01-19 10:20 | HP.PCM_ITS ---
History and Physical OFFICE VISITDate of Service: 01/12/21 MR#:[id number]: RINKU CHAVEZ [facility] #:[id number]:1980 Provider:Dr. Ernesto Morrison MDAge/Sex: 40/M [facility] [place].WSAStatus:Signed Intake Intake Visit Reasons: f/u diverticulitis Chief Complaint: Abdominal pain Allergies Penicillins Allergy (Verified 01/12/21 08:18) Unknown Medications multivitamin with minerals 1 ea PO DAILY 08/13/19 [History Confirmed 01/12/21] escitalopram oxalate 10 mg PO DAILY 11/24/20 [History Confirmed 01/12/21] PFSH Medical History Acute diverticulitis Alcohol abuse Depression Fatty liver Former smoker Sleep apnea Surgical History Hx of shoulder surgery Social History Smoking Status: Former smoker HPI HPI HPI: RINKU CHAVEZ, is a 40 M who presents to the office today for hospital follow- up of an admission from 11/24/2020 to 11/28/2020 as occasion by presentation with complicated diverticulitis. Mr. Chavez remains largely pain?free. A states that he periodically has some lower abdominal pains but these are never persistent. He denies any fevers or chills. The is happy to report that he has added back some weight?to achieve estimates approximately 5 pounds. He continues to watch his diet carefully and is doing a lot of egg salad and tuna salad for lunch is. Had dinner as he is limiting his red meat intake. Following his hospitalization he has really restricted his intake of any salads or fiber. Exam Const General: cooperative, healthy appearing, comfortable and no acute distress Orientation: alert, awake and oriented x3 Resp Effort & Inspection: normal respiratory effort GI Inspection: normal to inspection and scar (Supra umbilical) Palpation: soft and tender in the LLQ (With deep palpation and pain radiation to left groin) Assessment and Plan Assessment and Plan (1) Diverticulitis of large intestine with complication: Status: Acute Comment: This is a 40-year-old male who presents for his second post hospital visit after admission for complicated diverticulitis. He has experienced durable resolution of his acute symptoms. There is still some mild discomfort/tenderness with deep palpation on exam of the left lower quadrant. He has noticed some weight increase, but continues to maintain some dietary modifications. At this point, he would be eligible to begin some dietary fiber. We also have scheduled a diagnostic colonoscopy for 01/19/2021 to evaluate the extent of his diverticular disease. Prep and details of this procedure were discussed last visit but reviewed today. He has no questions for this upcoming procedure. Plan - Dr. Ernesto Morrison MD: ?Proceed with colonoscopy on 01/19/2021 under local MAC. ?Pending on the results of the above will likely see patient back in consultation for consideration of elective sigmoid colectomy Coding Level of Care Code Off vis,est,level 3 Diagnoses Diverticulitis of large intestine with complication K57.32 01/12/21 1154<Electronically signed by Ernesto Morrison MD>Date Ernesto Morrison MD I have re-examined the patient. There are no clinical changes since date of exam. He states that his prep went uneventfully. He denies any abdominal pain with his bowel movements. He confirms that his output is now clear. Plan to proceed with colonoscopy under local MAC given history of complicated diverticulitis.
--- NOTE | 2021-01-19 11:30 | OP.COLON_ITS ---
Patient Name: Hira Chavez Procedure Date: 01/19/2021 10:38 AM Date of : 1980 Age: 40 Procedure: Colonoscopy Indications: Follow-up of diverticulitis Providers: Ernesto Morrison MD Medicines: See the Anesthesia note for documentation of the administered medications Patient Profile: Refer to note in patient chart for documentation of history and physical. Last Colonoscopy: more than 10 years ago. Complications: No immediate complications. Estimated blood loss: None. Procedure: Pre-Anesthesia Assessment: - The anesthesia plan was to use moderate sedation/analgesia (conscious sedation). - The heart rate, respiratory rate, oxygen saturations, blood pressure, adequacy of pulmonary ventilation, and response to care were monitored throughout the procedure. After I obtained informed consent, the scope was passed under direct vision. Throughout the procedure, the patient's blood pressure, pulse, and oxygen saturations were monitored continuously. The adult colonoscope was introduced through the anus and advanced to the ileocecal valve. The colonoscopy was performed without difficulty. The patient tolerated the procedure well. The quality of the bowel preparation was adequate to identify polyps. Scope In: 10:52:07 AM Scope Withdrawal Time 0 hours 20 minutes 19 seconds Scope Out: 11:20:02 AM Total Procedure Duration Time 0 hours 27 minutes 55 seconds Findings: Multiple large-mouthed diverticula were found in the sigmoid colon, transverse colon and from 20 to 30 cm proximal to the anus. There was no evidence of diverticular bleeding. No biopsies or other specimens were collected for this exam. The exam was otherwise without abnormality. The retroflexed view of the distal rectum and anal verge was normal and showed no anal or rectal abnormalities. No biopsies or other specimens were collected for this exam. Impression: - Moderate diverticulosis in the sigmoid colon, in the transverse colon and from 20 to 30 cm proximal to the anus. There was no evidence of diverticular bleeding. No specimens collected. - The examination was otherwise normal. - The distal rectum and anal verge are normal on retroflexion view. Recommendation: - Discharge patient to home (via wheelchair). - Resume regular diet today. - Continue present medications. - Return to my office in 1 week. - Repeat colonoscopy in 10 years for screening purposes. Procedure Code(s): --- Professional --- 03025, Colonoscopy, flexible; diagnostic, including collection of specimen(s) by brushing or washing, when performed (separate procedure) Diagnosis Code(s): --- Professional --- K57.32, Diverticulitis of large intestine without perforation or abscess without bleeding K57.30, Diverticulosis of large intestine without perforation or abscess without bleeding CPT copyright 2017 [employer]. All rights reserved. The codes documented in this report are preliminary and upon assistant director of residence life review may be revised to meet current compliance requirements. Ernesto Morrison MD 01/19/2021 11:30:14 AM This report has been signed electronically. Number of Addenda: 0 Note Initiated On: 01/19/2021 10:38 AM
--- NOTE | 2021-01-19 11:31 | OP.CCLET_ITS ---
01/19/2021 Russ Rai Re : Colonoscopy procedure for Hira Rai This procedure was performed on Tuesday, January 19, 2021. My impressions and recommendations are as follows: Impressions : - Moderate diverticulosis in the sigmoid colon, in the transverse colon and from 20 to 30 cm proximal to the anus. There was no evidence of diverticular bleeding. No specimens collected. - The examination was otherwise normal. - The distal rectum and anal verge are normal on retroflexion view. Recommendations : - Discharge patient to home (via wheelchair). - Resume regular diet today. - Continue present medications. - Return to my office in 1 week. - Repeat colonoscopy in 10 years for screening purposes. My findings are described in the full procedure note, which is enclosed. If I can be of further assistance, please feel free to contact me at Doctor phone number(s): , Work: . Sincerely, Ernesto Morrison MD 01/19/2021 11:30:14 AM This report has been signed electronically.
== END 2021-01-19 12:25 ==
LOC: EN 09:14 → AC 09:14
PROVIDERS: PCP Family Medicine; Referring Provider Family Medicine; Visit Provider Surgery
PROC: 0DJD8ZZ Inspection of Lower Intestinal Tract, Via Natural or Artificial Opening Endoscopic (ICD-10-PCS; CPT 45378; principal; 2021-01-19 10:25)
DX: K57.30 Diverticulosis of large intestine without perforation or abscess without bleeding (principal); G47.30 Sleep apnea, unspecified; F17.220 Nicotine dependence, chewing tobacco, uncomplicated; Z87.19 Personal history of other diseases of the digestive system
CPT/HCPCS: 45378

== ENCOUNTER 2022-03-20 05:15 | Inpatient (IN) | payer BC, SELFPAY ==
[2022-03-20] VITALS (15 sets, daily range): BP systolic 114–157; BP diastolic 68–97; PULSE 82–115; RESP 16–18; TEMP 36.3–37.2; O2SAT 91–98; BMI 30.9
[2022-03-20] MEDS: Lactated Ringers 1,000 ML 40 ML IV ×5 (06:00→15:24)
[2022-03-20] MEDS: Acetaminophen 500 MG Tablet 1000 MG PO ×3 (06:18→23:12)
[2022-03-20] MEDS: Gabapentin 600 MG Tablet PO (06:19)
[2022-03-20 07:20] LABS: Bedside Glucose 138 mg/dL (74-106)
--- NOTE | 2022-03-20 07:29 | HP.PCM_ITS ---
History and Physical Date of Admission: 03/20/22 Date of Service:? 02/11/22 MR#: [id number] Acct: [id number] Name:RINKU BERG Rep #: [id number] : 1980 ? ? Provider: Dr. Ernesto Morrison MD Age/Sex:? 41/M ? ? Location: [facility] Status: Signed Intake Vital Signs ? 02/12/2208:33 Height 6 ft Weight: 235 lb BMI 31.8 BP 142/96 H Blood Pressure Location Rt brachial Position Sitting Respiration 18 Intake Visit Reasons:?DISCUSS SURGERY Chief Complaint: discuss surgery Carbon Rod Inserter Required: No Is patient in pain?: No Allergies Penicillins Allergy (Verified 02/11/22 08:33) Unknown Medications multivitamin with minerals 1 ea PO DAILY 08/13/19 [History Confirmed 02/11/22] sertraline 50 mg tablet (Zoloft) 50 mg PO DAILY 01/21/22 [History Confirmed 02/11/22] metronidazole 500 mg tablet 500 mg PO .COMPLEX #6 tabs 02/11/22 [Rx Confirmed 02/11/22] neomycin 500 mg tablet 500 mg PO .COMPLEX #6 tabs 02/11/22 [Rx Confirmed 02/11/22] PFSH Medical History Alcohol abuse Anxiety Arthritis Depression Fatty liver History of diverticulitis History of IBS History of stress test Seizures Sleep apnea Smoker Surgical History? Hx of shoulder surgery Hx of umbilical hernia repair Hx of vasectomy Social History?(Updated 01/21/22 @ 09:36 by Loly Wood) Smoking Status:? Current every day smoker tobacco type: cigarettes HPI HPI HPI: Patient presents for follow-up of diverticulitis and possible discussion of elective sigmoid colectomy.? His last visit with me was 01/21/2022.? He is happy to report that he has healed following his most recent bout of diverticulitis and denies any pain.? He confirms that he is having at least 1 bowel movement per day without issue.? He states that he is mentally at a place to go through the surgery now.? He reports that he thought extensively on our conversation in January and decided that he would not want to risk requiring an emergent operation.? Further, he is interested in not to worry about when his next episode will be and reports that the antibiotics make him sick.? He also states that he has sick leave available to him now so he will plan to approach this on an elective schedule. Below is recapitulated from patient's previous clinic visit for ease of review: Patient is well-known to me from prior episode of complicated diverticulitis and subsequent work-up.? He presents today for evaluation following recurrent diverticulitis.? He was last seen with us 02/08/2021.? Mr. Chavez reports that he began feeling it come on on 01/14/2022.? By this he clarifies he had discomfort in his bilateral lower abdominal quadrants and excessive diarrhea with a total count of 12 times in those first few days.? On observing this change he called our office and started antibiotics the following day.? The evening of starting antibiotics he notes that he had some sweating, but did not objectively measure his temperature.? Along with starting antibiotics he reports that he changed his diet immediately to taking some Ensure and mashed potatoes b ut limiting most other foods.? He is happy today to report that things are not flowing through anymore.? He denies any recent sick contacts or any use of antibiotics recently.? He also denies any burning with urination.? He reports that up until this point he was having normal bowel movements.? He also reports a roughly 20 pound weight gain in the last 1 year. ROS General General: Yes weight change and fatigue; No appetite, colon cancer, breast cancer or weakness HEENT HEENT: No difficulty swallowing, eye injury, eye surgery, swollen glands or hoarseness Endo Endocrine: No thyroid disease, diabetes mellitus, thyroid cancer, Hair loss, heat intolerance or cold intolerance Skin Skin: No rash or changing moles Breast Breast: No left breast lump, right breast lump, nipple discharge, breast pain, abnormal mammogram, abnormal US or breast enlargement Musc Musculoskeletal: Yes arthritis; No back problems, rheumatoid arthritis, gout or joint pain Cardio Cardiovascular: No murmur, pacemaker, heart disease, atrial fibrillation, high blood pressure, heart attack, heart stent, palpitations, shortness of breat with exertion or chest pain Psych Psychiatric: Yes depression and anxiety; No hearing voices Resp Respiratory: No shortness of breath, No sleep apnea, No cough, No COPD, No asthma, No emphysema and No wheezing Gastro Gastrointestinal: Yes abdominal pain, Yes nausea or vomiting, Yes diarrhea, No constipation, No blood in stool, No acid reflux, No hemorrhoids, No ulcers, No gallbladder problem and No black,tarry stools Niels Hematologic: No blood thinners, No blood disorders, No bleeding, No anemia and No blood clots Neuro Neurologic: No system reviewed and no additional complaints, except as documented, No as per HPI, No abnormal gait, No abnormal hearing, No abnormal movements, No abnormal speech, No behavioral changes, No burning sensations, No confusion, No convulsions, No disequilibrium, No dizziness, No localized weakness, No frequent falls, No headache(s), No lack of coordination, No loss of vision, No memory loss, No numbness, No other visual disturbances, No radicular pain, No restless legs, No sensory deficit, No syncope, No tingling, No tremor(s), No weakness and No other Exam Const General: cooperative, comfortable and no acute distress Orientation: alert, awake and oriented x3 Resp Effort & Inspection: normal respiratory effort GI Inspection: normal to inspection and non-distended Assessment and Plan Assessment and Plan (1) Diverticulitis: ?Status:?Acute ?Comment: This is a 41-year-old male who presents for clinic follow-up after his second recurrence of diverticulitis?this time was an uncomplicated bout that responded well to conservative measures.? After multiple lengthy discussions, Mr. Chavez states she is ready to move forward with an elective sigmoid colectomy.? We held a detailed conversation around what this procedure would entail?including hand drawings to diagrammed the relevant anatomy.? I also discussed the ERAS pathway in the expectations for early ambulation and minimal narcotics.? Mr. Chavez expresses his trust in my recommendation and wishes to proceed with an elective sigmoid colectomy.? We will also plan for mechanical bowel prep prior to the procedure as a means of mitigating his perioperative risk. ?Plan: Plan for elective, laparoscopic sigmoid colectomy with primary anastomosis and enrollment in the ERS pathway mid March 2022. ? ? ? Medications: New neomycin ?500 mg orally Take the day before surgery. 2 tabs at 1:00pm, 2 tabs at 3:00pm and 2 tabs at 11:00pm; Take the day before surgery. 2 tabs at 1:00pm, 2 tabs at 3:00pm and 2 tabs at 11:00pm 6 tabs 0RF ? ? metronidazole ?500 mg orally Take the day before surgery. 2 tabs at 1:00pm, 2 tabs at 3:00pm and 2 tabs at 11:00pm;? 6 tabs 0RF Interval Note: There have been no interval changes to the history documented above. I reviewed procedure and post-procedure expectations. Specifically, I discussed use of TAPS block for pain control and general aims of ERAS pathway. Patient denies any questions and confirms readiness to proceed. Therefore, we will proceed to OR suite for scheduled laparoscopic sigmoidectomy.
--- NOTE | 2022-03-20 07:30 | COL_PTH ---
PATIENT: RINKU BREEN LOC: [facility] U#:[id number] AGE/SX: 41/M ROOM: [facility]315 RE03/20/[address]: Dr. Ernesto Morrison MD : 1980 BED: 1 DIS: 03/22/2022 SPEC #: [id number] RECD: 03/20/22 13:28 STATUS: JAIR REQ #: [id number] JEFF: 03/20/22 07:[address]: Ernesto Morrison DEPT: SURGICAL PATHOLOGY RECD BY: Ines Sanchez ENTERED: 03/21/22 11:53 SP TYPE: COLON OTHR DR: Dr. Russ Rai MD Tissues: A - Colon, NOS B - Colon Donuts C - Colon Donuts Procedures: Surgery Specimen Level III Surgery Specimen Level V HEADER OPERATION: ERAS, laparoscopic sigmoid colectomy PRE-OP DIAGNOSIS: Diverticulitis TISSUE SUBMITTED: A ? Sigmoid colon, B ? Rectum donut, C ? Sigmoid donut MICROSCOPIC DIAGNOSIS A. Sigmoid colon, colectomy: Diverticulosis and diverticulitis. Three benign pericolonic lymph nodes with reactive changes. B. Rectal donut: Colonic donut, no pathologic diagnosis. C. Sigmoid donut: Colonic donut, no pathologic diagnosis. SJ:tahira 03/25/2022 MICROSCOPIC DESCRIPTION Slides are reviewed. GROSS DESCRIPTION A - Received in fixative is one container labeled with the patient's name and designated sigmoid colon. The specimen consists of a segment of colon with attached pericolonic adipose tissue measuring 9.5 cm in length. One resection margin is open and the other resection margin is stapled. The lumen contains a small amount of mucoid fecal material. No mucosal lesion is identified. Sections reveal multiple diverticula. No obviously ruptured diverticula are noted. Sections will be submitted after fixation. / SJ:tahira 03/21/2022 Sections of pericolonic adipose tissue do not reveal any obviously enlarged lymph node. Cnc Operator sections are submitted in five cassettes as follows: 1 - resection margin, open resection margin is inked black, 2-4 - diverticula, 5 - pericolonic adipose tissue. / JANE:tahira 03/22/2022 B - Received in fixative is one container labeled with the patient's name and designated rectum donut. The specimen consists of a donut-shaped piece of colonic tissue measuring 1.5 x 1.5 x 0.7 cm. Multiple lisandro are noted. Cnc Operator sections are submitted in one cassette. / SJ:tahira 03/21/2022 C - Received in fixative is one container labeled with the patient's name and designated sigmoid donut. The specimen consists of a donut-shaped piece of colonic tissue measuring 2 x 2 x 1 cm. Multiple sutures are noted. Cnc Operator sections are submitted in one cassette. / SJ:tahira 03/21/2022 TC:5 CPT: 60770, 22646 x2
[2022-03-20] MEDS: Cefotetan 2 GM in 0.9% NS 100 ML IV ×2 (07:48→12:06)
[2022-03-20] MEDS: BUPIVACAINE LIPOSOME/PF 20 ML VIAL OPERA.SITE (08:40)
[2022-03-20] MEDS: 0.9% Normal Saline (Pres. free 10 ML Vial (08:40)
[2022-03-20] MEDS: Lubricating Jelly 60 GM Tube 30 GM (09:00)
--- NOTE | 2022-03-20 12:24 | PCM.OPRPT ---
Report of Operation Date of Procedure: 03/20/22 Pre-Operative Diagnosis: 1. Recurrent diverticulitis 2. History of complicated diverticulitis Post-Operative Diagnosis: Same Surgery/Procedure Performed:: Laparoscopic sigmoidectomy with primary stapled end-to-end anastomosis Description of Surgical Findings:: ? Sigmoid colon moderately densely adherent to the pelvic brim ? Thick mesocolon ? Posterior thickening of sigmoid colon consistent with history of resolved diverticular flares Surgeon: Ernesto Morrison obstetrical tech: Christina Conner obstetrical tech: Clara Reid Type of Anesthesia: General/Supplemental Anesthesiologist: Francesco Ingram Specimen's removed: Sigmoid colon Drains: NA Estimated Blood Loss (mL): 50 Description of Procedure: After appropriate identification and preoperative holding area patient was brought to the operating room where he was positioned supine on the operating table. There, preoperative antibiotics were completed. He then underwent induction with general endotracheal anesthetic. A Duron catheter was inserted with sterile technique for accurate ins and outs monitoring. Patient's rectum was then irrigated with a dilute Betadine solution. The abdomen was prepped and draped in usual sterile fashion. Formal timeout confirmed patient and the procedure. Procedure was begun with a infraumbilical Hernandez entry and placement of a 12 mm balloon trocar. Pneumoperitoneum was established to 15 mmHg and a laparoscope was inserted to reveal no inadvertent injury to the viscera below. A transversus abdominis plane block was made under laparoscopic guidance bilaterally using 80 mL of Exparel, bupivacaine, and saline. An additional 12 mm trocar was placed under laparoscopic guidance in the right lower quadrant. Two x 5 mm trocars were placed in the right midabdomen and suprapubic positions?also under laparoscopic visualization. Then in Trendelenburg positioning, the patient's colon was mobilized lateral to medial by incising the white line of Toldt with the laparoscopic LigaSure device. The sigmoid colon was found to be moderately densely adherent to the pelvic brim and great care was taken to feather out the adhesions and identify the left ureter crossing the iliac vessels. This colonic mobilization extended from the lateral aspect of the splenic flexure superiorly to the rectum inferiorly. Once complete, the colon was elevated anteriorly and a retrocolic window was carefully made using the laparoscopic LigaSure device to maintain hemostasis through the thick mesocolon. This window was continued inferiorly directly adjacent to the posterior wall of the sigmoid colon and rectum. A distal transection point was elected and the rectum was divided with serial firings of the laparoscopic 45 mm [place] stapler. The suprapubic 5 mm port was removed and a Pfannenstiel incision was made in this location taking care to leave the rectus muscle intact and divide only the anterior rectus sheath. A medium size Simba wound protector was placed once peritoneal entry was established. The free end of colon was delivered through this opening and the colon was palpated to determine the limits of the affected/diseased colon. A proximal transection point was thereby established and the colon was sharply divided at this point and passed off the operative field for pathologic processing. The lumen of the remaining descending colon was inspected and found to be quite narrow. Sizers were lubricated and introduced through this opening. The opening proved to be a tight fit to accommodate even the 25 mm sizer. The opening was also digitally palpated to determine if a more proximal portion of the colon demonstrated a greater diameter, but this did not seem to be the case. With this observation we asked for the 29 mm EEA stapler anvil to be brought onto the field and?although the if it was tight?it was able to be introduced through the colotomy. A pursestring was made about this colotomy using a 2-0 Prolene suture and the anvil was placed fully within the colotomy. The pursestring suture was snugged down around the anvil post and a second pursestring suture was placed concentric to the first to ensure complete incorporation of the colonic mucosa. The specimen was then returned to the peritoneal cavity and pneumoperitoneum reestablished. Using standard technique a end and colorectal anastomosis was created with a firing of our EEA stapler. Complete colon and rectal donuts were verified once the stapler was withdrawn. The pelvis was then filled with irrigation and the descending colon?proximal to the new anastomosis?was occluded with pressure. A proctoscope was inserted transanally and the rectum was pressurized. There was no resulting bubbling. The proctoscope was then withdrawn and the irrigation suctioned free of the peritoneum. There did not appear to be any bleeding. The patient was returned to a neutral position and pneumoperitoneum was evacuated. All operative personnel changed gown and gloves and closure was begun with reapproximation of the peritoneum and the Pfannenstiel incision using a running 2-0 Vicryl suture. The anterior rectus sheath was closed transversely with a running #1 PDS suture. The 12 mm infraumbilical port site was closed with a 2-0 Vicryl in a [id number] fashion. All port sites were irrigated with sterile saline. The skin of each port site was closed in a subcuticular fashion using 4-0 Monocryl. Steri-Strips and bandages were applied as dressings. Procedure was then complete and the patient's Duron catheter was removed. Anesthesia awaken the patient and he was transferred to PACU for ongoing recovery. Complications None Procedures Digestive [id number]: [id number] L colectomy/coloproctostomy
[2022-03-20] MEDS: Ketorolac 15 MG/ML Vial IV ×2 (15:55→23:13)
[2022-03-20] MEDS: 0.9% Saline Lock 10 ML Syringe IV (16:00)
[2022-03-20] MEDS: Docusate Sodium 100 MG Capsule PO (21:42)
[2022-03-21] VITALS (7 sets, daily range): BP systolic 117–138; BP diastolic 75–83; PULSE 66–89; RESP 16–18; TEMP 36.5–37.2; O2SAT 96–98
[2022-03-21] MEDS: Ketorolac 15 MG/ML Vial IV ×3 (05:05→18:11)
[2022-03-21] MEDS: Acetaminophen 500 MG Tablet 1000 MG PO ×4 (05:05→23:06)
[2022-03-21 06:35] LABS: Hematocrit 41.1 % (40-54); Hemoglobin 13.3 g/dL (13.0-16.5); Mean Corp Hgb Conc 32.4 g/dL (32-36); Mean Corpuscular Hgb 28.8 pg (27.0-32.0); Mean Platelet Vol. 9.4 fl (6.2-12.0); Platelet Count 241 K/mm3 (150-450); RBC Distribution Width CV 13.7 % (11.6-14.6); RBC Distribution Width SD 44.5 fl (35.1-43.9); Red Blood Count 4.62 M/mm3 (4.6-6.2); White Blood Count 11.6 K/mm3 (4.4-11.0)
[2022-03-21 06:59] LABS: Anion Gap 7 (5-15); BUN 13 mg/dL (7-18); BUN/Creat Ratio 11.3 RATIO (10-20); Calcium,Total 8.5 mg/dL (8.5-10.1); Chloride 102 mmol/L (98-107); Creatinine, Serum 1.15 mg/dL (0.70-1.30); EST Glomerular Filtration Rate 74 mL/min (>60); Est Glom Filt Rate - Afr Amer 89 mL/min (>60); Glucose 113 mg/dL (74-106); Sodium Level 137 mmol/L (136-145)
--- NOTE | 2022-03-21 08:30 | PN.SURG_ITS ---
Subjective Subjective Patient seen and examined during AM rounds. He is found sitting up and out of bed in a chair. He states his abdominal pain this morning is well controlled. He does report that he had difficulty with urinary retention overnight and required a straight catheterization. He has since been urinating rather normally. He also reports that he began passing gas earlier this morning. He expresses an appetite and denies any nausea. His only complaint presently is for some persistent bloating. Objective Data Objective Data Vital Signs: Vital Signs Temp Pulse Resp BP Pulse Ox O2 Del Method O2 Flow Rate 98.2 F 87 18 118/81 H 96 Room Air 4 03/21/22 07:40 03/21/22 07:40 03/21/22 07:43 03/21/22 07:40 03/21/22 07:40 03/21/22 07:43 03/20/22 14:15 Oxygen Flow Rate (L/min) 4 Oxygen Delivery Method Room Air Weight: 241 lb Body Mass Index (BMI) 30.9 Intake & Output: Intake and Output for Last 24 Hours 03/19/22 03/20/22 03/21/22 23:59 23:59 23:59 Intake Total 3516.67 / 3516.67 Output Total 1695 / 1695 Balance 1821.67 / 1821.67 Lab / Micro Data Result Diagrams: 03/21/22 05:55 03/21/22 05:55 Labs: Laboratory Results - last 24 hr 03/21/22 05:55: WBC 11.6 H, RBC 4.62, Hgb 13.3, Hct 41.1, MCV 89.0, MCH 28.8, MCHC 32.4, RDW Std Deviation 44.5 H, RDW Coeff of Omar 13.7, Plt Count 241, MPV 9.4 03/21/22 05:55: Sodium 137, Potassium 4.0, Chloride 102, Carbon Dioxide 28.0, Anion Gap 7, BUN 13, Creatinine 1.15, Estim Creat Clear Calc 96.30, Est GFR (MDRD) Af Amer 89, Est GFR (MDRD) Non-Af 74, BUN/Creatinine Ratio 11.3, Glucose 113 H, Calcium 8.5 Physical Exam Const oriented x3 and no apparent distress Resp normal respiratory effort GI GI Narrative: Improved abdominal distention, operative dressings intact, there is redness abo ut the patient's infraumbilical/Pfannenstiel incision. It is difficult to determine the cause of this redness. There is no significant warmth or fluctuance presently. Patient complains of tenderness with palpation only about his right lower quadrant port site which is appropriate?appearing. Assessment & Plan Assessment/Plan (1) S/P laparoscopic-assisted sigmoidectomy: PLAN: Patient is postoperative day 1 from lap sigmoidectomy for history of recurrent diverticulitis. Overall he is doing well despite having some urinary retention yesterday he is now voiding spontaneously. He is also experienced return of bowel function with positive flatus this morning. He expresses an appetite. On exam there is some concerning erythema about his port site incisions. There is no clear evidence of infection and this could represent a hyperemic appearance secondary to the soft tissue dissection required to place his extraction port yesterday but we will have to continue close surveillance. Neuro: As needed acetaminophen, as needed ibuprofen, as needed oxycodone Pulm/CV: Incentive spirometer, BP/heart rate have been within normal limits FEN/GI: Electrolytes replete per today's labs, we will advance patient to full liquid diet today given return of bowel function : Add tamsulosin 0.4 daily on account of urinary retention and monitor situation closely Heme/ID: Trend CBC and patient's abdominal exam to be sure erythema is not a harbinger for infection Endo: No current issues Proph: Patient encouraged to ambulate frequently Dispo: Continue inpatient stay
[2022-03-21] MEDS: Docusate Sodium 100 MG Capsule PO ×2 (09:55→20:54)
[2022-03-21] MEDS: Ensure Plus High Protein 120 ML LIQUID PO (09:55)
--- NOTE | 2022-03-21 11:05 | CASEMGMT ---
HANDY YADAV Assessment: Face to Face with pt for initial transition planning/care coordination assessment. RN VICENTA introduced self and role at [facility], pt voices understanding and consents to assessment. Pt is A/O x4 and answers all questions appropriately at this time. Care providers, pharmacy, and demographics verified/updated. Pt sitting up in chair with father at bedside in no distress. Pt agreeable to answering questions when father present. Admitting Dx: lap sig colectomy PCP:Fredi Specialists: [facility], OR; Tito, spine OR Preferred Pharmacy: [facility] Insurance: [employer] Prescription Benefit: yes LNOK: Len Chavez, father; Debbie Orosco, sig other- Pt states to leave info on but state she is not in the picture Living Arrangements: Pt lives alone in a two story home with 2 steps to enter with a rail. Pt reports he is I in ADL's and denies concerns at home. Transportation: Pt drives self and denies concerns with transportation. DME/HHC/SNF: Pt denies having any DME in the home, previous HHC or SNF stays. Pt states no concerns with going home at time of dc. Pt states no further concerns/needs. CM to follow. Advised pt to ask CM if any further question/concerns/needs arise, voices understanding. Pt Goal: Home Plan: Home
[2022-03-21] MEDS: Tamsulosin HCl 0.4 MG Capsule PO (16:45)
[2022-03-22 02:24] VITALS: BP 117/78; PULSE 86; RESP 16; TEMP 36.7; O2SAT 96
[2022-03-22] MEDS: Acetaminophen 500 MG Tablet 1000 MG PO ×2 (04:55→12:05)
[2022-03-22 08:30] VITALS: BP 131/90; PULSE 82; RESP 18; TEMP 36.6; O2SAT 98
[2022-03-22] MEDS: Docusate Sodium 100 MG Capsule PO (10:00)
--- NOTE | 2022-03-22 10:51 | DCINST_ITS ---
Discharge Instructions Diet Discharge Diet: Soft diet Activity Discharge Activity: May Not Drive (No driving while using narcotic pain medication) and May Shower Ice area for (Minutes): 20 Lifting Restrictions: No lifting greater than 10 pounds for the next 4 weeks Additional Activity Instructions:: No bending or stooping Dressing / Incision Call your doctor if your incision/area has: Continuous Slow Oozing, Sudden Increased Bleeding, Increased Pain/ Swelling, Increased Redness, Foul Smelling Discharge and Swelling at the incision site Call your doctor if you observe: Fever of 101 or Higher and Inability to have a bowel movement Cleanse incision/area with: Soap & Water Follow Up Care Please Follow Up With: Ernesto Morrison MD When: 1 week postop Test Results: Test results from this visit will be discussed in further detail at your follow- up appointment, if applicable. Discharge Plan Admission Admit Date/Time: 03/20/22 05:15 Primary Reason for Your Visit: Segmental colectomy for history of diverticulitis Attending Provider: Ernesto Morrison Primary Care Provider: Russ Rai Discharge Orders/Prescriptions Prescriptions: New oxycodone 5 mg Tablet 5 mg PO Q6H PRN (Reason: pain) 5 Days Qty: 14 0RF Continued sertraline [Zoloft] 50 mg tablet 50 mg PO DAILY multivitamin with minerals 1 EACH tablet 1 ea PO DAILY Referrals / Follow Up: Russ Rai MD [Primary Care Provider] - Disposition Disposition (needs filled in before D/C Order can be placed): Home, Self Care
--- NOTE | 2022-03-22 11:03 | PCM.DC.SUM ---
Providers Date of Admission: 03/20/22 Primary Care Physician: Dr. Russ Rai MD Reason For Visit: LAP SIG COLECTOMY Diagnosis Discharge Diagnosis (1) S/P laparoscopic-assisted sigmoidectomy: Status: Acute Code(s): Z90.49 - Acquired absence of other specified parts of digestive tract Plan: Patient is postoperative day 1 from lap sigmoidectomy for history of recurrent diverticulitis. Overall he is doing well despite having some urinary retention yesterday he is now voiding spontaneously. He is also experienced return of bowel function with positive flatus this morning. He expresses an appetite. On exam there is some concerning erythema about his port site incisions. There is no clear evidence of infection and this could represent a hyperemic appearance secondary to the soft tissue dissection required to place his extraction port yesterday but we will have to continue close surveillance. Neuro: As needed acetaminophen, as needed ibuprofen, as needed oxycodone Pulm/CV: Incentive spirometer, BP/heart rate have been within normal limits FEN/GI: Electrolytes replete per today's labs, we will advance patient to full liquid diet today given return of bowel function : Add tamsulosin 0.4 daily on account of urinary retention and monitor situation closely Heme/ID: Trend CBC and patient's abdominal exam to be sure erythema is not a harbinger for infection Endo: No current issues Proph: Patient encouraged to ambulate frequently Dispo: Continue inpatient stay Medications at Discharge Home Medications multivitamin with minerals 1 ea PO DAILY SUPPLEMENT 08/13/19 sertraline 50 mg tablet (Zoloft) 50 mg PO DAILY ANTDEPRESSANT 01/21/22 oxycodone 5 mg tablet 5 mg PO Q6H PRN pain 5 days #14 tabs 03/22/22 Hospital Course Operations - (Laparoscopic sigmoid colectomy) Summary of Care Provided Hospital Course: Patient is a 41-year-old male who underwent laparoscopic assisted sigmoid colectomy on 03/20/2022. He was admitted to the floor postoperatively and entered the ERAS recovery protocol. While he tolerated his liquid diet, he did have some bloating and ultimately some urinary retention postoperative day 0. He thus required straight catheterization, but returned to spontaneous micturition thereafter. Postoperative day 1 he was feeling better and reported return of bowel function with some flatus so his diet was advanced to full liquids. He continued to complain of some bloating and cramping discomfort until he began with bowel movements the afternoon of postoperative day 1. The morning of postoperative day 2 patient was feeling more comfortable and still having ongoing flatus so he was advanced to a soft regular diet. Dressings were removed and his operative sites appeared appropriate. Patient tolerated this second diet advancement without issue and given his meeting of these clinical benchmarks was granted discharge to home with clear instructions for outpatient care of his wounds as well as expectation for clinic follow-up within 1 week of hospital discharge. Physical Exam Const alert and no apparent distress General Appearance: cooperative Resp normal respiratory effort GI GI Narrative: Mild abdominal distention present. Mild ecchymosis of the anterior abdominal wall between patient's infraumbilical incision and superior to his Pfannenstiel extraction site. Soft and minimal tenderness with palpation. Weight / BMI Weight Weight: 241 lb Body Mass Index (BMI) 30.9 ABG / Lab / Microbiology Data Result Diagrams: 03/21/22 05:55 03/21/22 05:55 D/C Instructions Discharge Diet: Soft diet Ice area for (Minutes): 20 Call your doctor if your incision/area has: Continuous Slow Oozing, Sudden Increased Bleeding, Increased Pain/ Swelling, Increased Redness, Foul Smelling Discharge and Swelling at the incision site Call your doctor if you observe: Fever of 101 or Higher and Inability to have a bowel movement Cleanse incision/area with: Soap & Water Please Follow Up With: Ernesto Morrison MD When: 1 week postop Meaningful Use Info Meaningful Use Diagnoses (Choose all that apply): None applicable Discharge Plan Admission Admit Date/Time: 03/20/22 05:15 Primary Reason for Your Visit: Segmental colectomy for history of diverticulitis Attending Provider: Ernesto Morrison Primary Care Provider: Russ Rai Discharge Orders/Prescriptions Prescriptions: New oxycodone 5 mg Tablet 5 mg PO Q6H PRN (Reason: pain) 5 Days Qty: 14 0RF Continued sertraline [Zoloft] 50 mg tablet 50 mg PO DAILY multivitamin with minerals 1 EACH tablet 1 ea PO DAILY Referrals / Follow Up: Russ Rai MD [Primary Care Provider] - Disposition Disposition (needs filled in before D/C Order can be placed): Home, Self Care
== END 2022-03-22 13:26 | disposition home or self-care (01) | DRG 331 ==
LOC: ACINP 07:02 → MS3 03-21 10:27
PROVIDERS: Anesthesiology; Admitting Provider Surgery; PCP Family Medicine; Referring Provider Surgery; Visit Provider Surgery
PROC: 0DTN0ZZ Resection of Sigmoid Colon, Open Approach (ICD-10-PCS; CPT 44204; principal; 2022-03-20 07:05)
DX: K57.92 Diverticulitis of intestine, part unspecified, without perforation or abscess without bleeding (principal); F17.210 Nicotine dependence, cigarettes, uncomplicated; F41.9 Anxiety disorder, unspecified; F32.A Depression, unspecified; Z79.899 Other long term (current) drug therapy
CPT/HCPCS: 36415; 80048; 82962; 83735; 85027; 88304; 88307; 99252; 99406; J7120; A4216; G0463; J2405; J3490